=== PATIENT | male | born 1975 | race Caucasian/White ===

== ENCOUNTER 2017-11-30 13:54 | Inpatient (IN) | payer OTHER ==
[2017-11-30 14:16] VITALS: BMI 43.5
--- NOTE | 2017-11-30 16:35 | HP ---
"CIWA Score - CIWA Score Nausea/Vomitin-No Nausea/No Vomiting Muscle Tremors: 4-Moderate,w/Arms Extend Anxiety: 4-Mod. Anxious/Guarded Agitation: 4-Moderately Restless Paroxysmal Sweats: 3 (Facial moisture w/o beading) Orientation: 1-Uncertain about Date Tacttile Disturbances: 0-None Auditory Disturbances: 0-None Visual Disturbances: 0-None Headache: 0-None Present CIWA-Ar Total Score: 16 Admission ROS BHS - HPI Chief Complaint: Having withdrawal symptoms from alcohol. Allergies/Adverse Reactions: Allergies Allergy/AdvReac Type Severity Reaction Status Date / Time Fish Containing Products Allergy Severe Verified 11/30/17 17:42 No Known Drug Allergies Allergy Verified 11/30/17 17:47 History of Present Illness: I'm here for detox for my alcohol and cocaine use. Alcohol use since age 14. Cocaine use since age 19. Nicotine use since age 14. Denies hx blackouts. States hx seizure 20 years ago r/t intense crack use. Longest length of sobriety 7 years ended in 2016. Hx: DM, HTN, hypercholesterol, Asthma. Chronic leg and back pain. States on oxycodone but doesn't take unless has really bad pain. Patient informed that this facility does not prescribe opiates for pain management and states ibuprofen will be okay. State non-compliant w/ DM medications x 2 days. Current BG is 229. Will give Janumet and glipizide but hold insulin and evaluate need based on BGM during admission. Hx PPD (+). Patient brought in results of negative C-Xray from Jun, 2017. Search Terms: Thompson Palafox, 1975 Search Date: 11/30/2017 04:46:37 PM The Drug Utilization Report below displays all of the controlled substance prescriptions, if any, that your patient has filled in the last twelve months. The information displayed on this report is compiled from pharmacy submissions to the Department, and accurately reflects the information as submitted by the pharmacies. This report was requested by: Amy Crowley | Reference #: [id number] Patient Name: Thompson Palafox Date: 1975 Address: [address] [place] [address] Sex: Male Rx Written Rx Dispensed Drug Quantity Days Supply Prescriber Name 11/27/2017 11/29/2017 oxycodone-acetaminophen 10-325 mg tab 30 15 Bonte, Cornelius Cameron () 11/14/2017 11/15/2017 oxycodone-acetaminophen 10-325 mg tab 30 15 Ren, Peyton 11/01/2017 11/01/2017 oxycodone-acetaminophen 10-325 mg tab 30 15 Cornelius Troncoso () 10/16/2017 10/16/2017 oxycodone-acetaminophen 10-325 mg tab 30 15 Cornelius Troncoso () 09/17/2017 09/17/2017 oxycodone-acetaminophen 10-325 mg tab 30 15 Ren, Peyton 08/28/2017 08/28/2017 oxycodone-acetaminophen 10-325 mg tab 30 15 Ren, Peyton 08/06/2017 08/07/2017 oxycodone-acetaminophen 10-325 mg tab 30 15 Ren, Peyton 07/24/2017 07/24/2017 oxycodone-acetaminophen 10-325 mg tab 30 15 Cornelius Troncoso () 07/03/2017 07/03/2017 oxycodone-acetaminophen 10-325 mg tab 30 15 Cornelius Troncoso () Patient Name: Thompson Palafox Date: 1975 Address: [address] [place] [address] Sex: Male Rx Written Rx Dispensed Drug Quantity Days Supply Prescriber Name 06/13/2017 06/13/2017 oxycodone-acetaminophen 10-325 mg tab 21 7 Olga Dumont 05/28/2017 05/28/2017 oxycodone-acetaminophen 10-325 mg tab 21 7 Olga Dumont 05/14/2017 05/14/2017 oxycodone-acetaminophen 10-325 mg tab 21 7 Olga Dumont 04/16/2017 04/16/2017 oxycodone-acetaminophen 10-325 mg tab 21 7 Olga Dumont 03/30/2017 03/30/2017 acetaminophen-cod #3 tablet 30 15 Olga Dumont 02/07/2017 02/07/2017 oxycodone-acetaminophen 10-325 mg tab 60 30 Faraz Rose MD 01/03/2017 01/03/2017 oxycodone-acetaminophen 10-325 mg tab 60 30 Faraz Rose MD 12/06/2016 12/06/2016 oxycodone-acetaminophen 10-325 mg tab 60 30 Faraz Rose MD x Exam Limitations: No Limitations - Ebola screening Have you traveled outside of the country in the last 21 days: No Have you had contact with anyone from an Ebola affected area: No Have you been sick,other than usual withdrawal symptoms: No Do you have a fever: No - Review of Systems Constitutional: Chills, Diaphoresis, Changes in sleep (Difficulty staying asleep.) EENT: reports: Blurred Vision (Wears glasses), Dental Problems (Gingivitis. Chew and swallows ok.) Respiratory: reports: Cough (Cough x 1 day. No phlegm), SOB with Exertion, Other (States has sleep apnea but not using a CPAP machine.) Cardiac: reports: No Symptoms Reported GI: reports: No Symptoms Reported : reports: No Symptoms Reported Musculoskeletal: reports: Back Pain (Chronic current LBP x 10 years. Pain is a ' 9' and achy. Increases w/ walking. Decreases w/ rest.), Other (Pain in entire (L ) leg x 10 years. Pain '9' is achy. Worse w/ walking. Better w/ resting/sitting. ) Integumentary: reports: No Symptoms Reported Neuro: reports: Unsteady Gait (r/t pain in (L) leg) Endocrine: reports: No Symptoms Reported Hematology: reports: No Symptoms Reported Psychiatric: reports: Judgement Intact, Agitated, Anxious, Depressed (Denies thoughts of harming self or others), other (Knows month and year. unsure of date ) Other Systems: Reviewed and Negative Patient History - Patient Medical History Hx Anemia: No Hx Asthma: Yes (Moderate asthma. Occ flovent ) Hx Chronic Obstructive Pulmonary Disease (COPD): No Hx Cancer: No Hx Cardiac Disorders: No Hx Congestive Heart Failure: No Hx Hypertension: No Hx Hypercholesterolemia: Yes (On meds ) Hx Pacemaker: No HX Cerebrovascular Accident: No Hx Seizures: Yes (20 years ago) Hx Dementia: No Hx Diabetes: Yes (States only takes Janumet, ) Hx Gastrointestinal Disorders: No Hx Liver Disease: No Hx Genitourinary Disorders: No Hx Sexually Transmitted Disorders: No Hx Renal Disease (ESRD): No Hx Thyroid Disease: No Hx Human Immunodeficiency Virus (HIV): No (Negative - Last tested 2017) Hx Hepatitis C: No Hx Depression: Yes (Denies current thoughts of harming self) Hx Suicide Attempt: Yes (20 years ago) Hx Bipolar Disorder: Yes (bi-polar) Hx Schizophrenia: No - Patient Surgical History Past Surgical History: Yes Hx Orthopedic Surgery: Yes (ORIF 1985) Anesthesia Reaction: No - PPD History Previous Implant?: Yes Implanted On Prior R Admission?: No PPD to be Administered?: No - Smoking Cessation Smoking history: Current every day smoker Have you smoked in the past 12 months: Yes Aproximately how many cigarettes per day: 4 Hx Chewing Tobacco Use: No Initiated information on smoking cessation: Yes 'Breaking Loose' booklet given: 11/30/17 - Substance & Tx. History Hx Alcohol Use: Yes Hx Substance Use: Yes Substance Use Type: Alcohol, Cocaine Hx Substance Use Treatment: Yes (detox) - Substances Abused Alcohol Route: Oral Frequency: Daily Amount used: 2 pints vodka, 12- 24 oz beers Age of first use: 14 Date of Last Use: 11/30/17 (2 am) Cocaine Route: Smoking Frequency: Daily Amount used: 2 gm Age of first use: 19 Date of Last Use: 11/30/17 (2 am) Admission Physical Exam BHS - Vital Signs Vital Signs: Vital Signs - 24 hr 11/30/17 14:14 Temperature 97.0 F L Pulse Rate 81 Respiratory 20 Rate Blood Pressure 130/75 - Physical General Appearance: Yes: Mild Distress, Tremorous, Irritable, Sweating, Anxious HEENTM: Yes: EOMI, Hearing grossly Normal, Normal Voice, TASNEEM, Other (Enkarged tonsils w/o lesions or erythema. Stage 3.) Respiratory: Yes: No Respiratory Distress, Wheezing (Inspiratory and expiratory wheeze. No rales or rhonchi) Neck: Yes: No masses,lesions,Nodules, Supple Breast: Yes: Breast Exam Deferred Cardiology: Yes: Regular Rhythm, Regular Rate, S1, S2 Abdominal: Yes: Non Tender, Soft, Increased Bowel Sounds, Protuberent ( Increased abdomnial adiposity) Genitourinary: Yes: Within Normal Limits Back: Yes: Normal Inspection Musculoskeletal: Yes: full range of Motion Extremities: Yes: Normal Capillary Refill, Normal Range of Motion, Tremors (At rest and increases with arm extension), Other (Generalized LE adiposity. Increased darkened varicosities BLE. 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 No edema. 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 Diabetes mellitus complication status : with unspecified complications Qualified Code(s): E11.8 - Type 2 diabetes mellitus with unspecified complications (4) Hypertension Current Visit: Yes Status: Chronic Qualifiers: Hypertension type: essential hypertension Qualified Code(s): I10 - Essential (primary) hypertension (5) Arthralgia Current Visit: Yes Status: Chronic Qualifiers: Joint pain location: unspecified Qualified Code(s): M25.50 - Pain in unspecified joint (6) Morbid obesity Current Visit: Yes Status: Chronic (7) Varicose veins of both lower extremities Current Visit: Yes Status: Chronic Qualifiers: Varicose vein complication: asymptomatic Qualified Code(s): I83.93 - Asymptomatic varicose veins of bilateral lower extremities (8) Asthma Current Visit: Yes Status: Acute Qualifiers: Asthma severity: unspecified severity Asthma persistence: intermittent Asthma complication type: with acute exacerbation Qualified Code(s): J45.21 - Mild intermittent asthma with (acute) exacerbation Cleared for Admission BHS - Detox or Rehab [facility] Level of Care: Medically Managed Detox Regimen/Protocol: Librium [facility] Breath Alcohol Content Breath Alcohol Content: 0 Urine Drug Screen - Results Drug Screen Negative: No Urine Drug Screen Results: ANCA-Cocaine, BZO-Benzodiazepines"
[2017-11-30] MEDS ORDERED: chlordiazePOXIDE HCL 25 MG CAPSULE PO PRN (17:15)
[2017-11-30] MEDS ORDERED: MENTHOL/PHENOL 1 EACH UD MM PRN (17:15)
[2017-11-30] MEDS ORDERED: LOPERAMIDE HCL 2 MG CAPSULE PO PRN (17:15)
[2017-11-30] MEDS ORDERED: ACETAMINOPHEN 325 MG TABLET (FP) PO PRN (17:15)
[2017-11-30] MEDS ORDERED: MAGNESIUM HYDROX 2400MG/30ML ORAL SUSPENSION 30 ML CUP PO PRN (17:15)
[2017-11-30] MEDS ORDERED: MAGNESIUM CITRATE 300 ML BOTTLE PO PRN (17:15)
[2017-11-30] MEDS ORDERED: hydrOXYzine PAMOATE 50 MG CAPSULE (FP) PO PRN (17:15)
[2017-11-30] MEDS ORDERED: guaiFENesin/D-METHORPHAN HB 10 ML UNIT-DOSE CUPS PO PRN (17:15)
[2017-11-30] MEDS ORDERED: IBUPROFEN 400 MG TABLET (FP) PO PRN (17:15)
[2017-11-30] MEDS ORDERED: MAG HYDROX/AL HYDROX/SIMETH 30 ML UNIT-DOSE CUP PO PRN (17:15)
[2017-11-30] MEDS ORDERED: P-EPHED 60MG/TRIPROLIDI 2.5MG TABLET PO PRN (17:15)
[2017-11-30] MEDS ORDERED: ALBUTEROL SO4 0.083% IH SOL 2.5 MG/3 ML VIAL.NEB. NEB PRN (17:20)
[2017-11-30] MEDS ORDERED: ALBUTEROL SO4 0.083% IH SOL 2.5 MG/3 ML VIAL.NEB. NEB ONE (19:30)
[2017-11-30] MEDS ORDERED: chlordiazePOXIDE HCL 25 MG CAPSULE PO ONE (19:30)
[2017-11-30] MEDS: chlordiazePOXIDE HCL 25 MG CAPSULE PO SCH (22:41)
[2017-11-30] MEDS: THIAMINE HCL 100 MG TABLET (FP) PO SCH (22:41)
[2017-12-01 01:24] LABS: URINE APPEARANCE CLEAR; URINE BILIRUBIN NEGATIVE (<2.0 mg/dL); URINE COLOR YELLOW; URINE GLUCOSE (UA) 3+ (NEGATIVE); URINE KETONE TRACE (NEGATIVE); URINE LEUK ESTERASE NEGATIVE (NEGATIVE); URINE NITRITE NEGATIVE (NEGATIVE); URINE PROTEIN 1+ (NEGATIVE); URINE UROBILINOGEN NEGATIVE mg/dL (0.2-1.0)
[2017-12-01 01:33] LABS: EPI CELLS RARE /HPF (FEW); URINE HYALINE CAST 3 /lpf; URINE MUCUS MODERATE
[2017-12-01] MEDS: chlordiazePOXIDE HCL 25 MG CAPSULE PO SCH ×4 (06:12→22:58)
[2017-12-01] MEDS: metFORMIN HCL 500 MG TABLET (FP) PO SCH (07:22)
[2017-12-01] MEDS: sitaGLIPtin PHOSPHATE 50 MG TABLET PO SCH (07:23)
[2017-12-01] MEDS: glipiZIDE 10 MG TABLET (FP) PO SCH (07:24)
[2017-12-01] MEDS: PRENATAL VITAMINS W/ FOLIC ACID TABLET (FP) PO SCH (10:29)
[2017-12-01] MEDS: ASPIRIN 81 MG CHEWABLE TABLETS PO SCH (10:29)
[2017-12-01] MEDS: LISINOPRIL 5 MG TABLET (FP) PO SCH (10:29)
--- NOTE | 2017-12-01 10:34 | EKG ---
Test Reason : Blood Pressure : / mmHG Vent. Rate : 078 BPM Atrial Rate : 078 BPM P-R Int : 166 ms QRS Dur : 080 ms QT Int : 486 ms P-R-T Axes : 060 037 056 degrees QTc Int : 554 ms POOR DATA QUALITY, INTERPRETATION MAY BE ADVERSELY AFFECTED NORMAL SINUS RHYTHM PROLONGED QT ABNORMAL ECG NO PREVIOUS ECGS AVAILABLE Confirmed by TYLER MCCULLOUGH MD ([id number]) on 12/01/2017 10:34:13 AM Referred By: Confirmed By:TYLER MCCULLOUGH MD
--- NOTE | 2017-12-01 10:40 | CONSULT ---
[facility] Psychiatric Consult - Data Date of interview: 12/01/17 Admission source: [facility] Identifying data: First admission to [facility] for this 42 y/o male seeking detoxification treatment on for alcohol and cocaine dependence. Patient is single without dependents,homeless,unemployed and deprived of income. Substance Abuse History: Discussed with patient in this interview. Mr Palafox confirms the following data included in this segment of [facility] report : Smoking history: Current every day smoker. Have you smoked in the past 12 months: Yes. Aproximately how many cigarettes per day: 4. Hx Chewing Tobacco Use: No. Initiated information on smoking cessation: Yes. 'Breaking Loose' booklet given : 11/30/17. - Substance & Tx. History. Hx Alcohol Use: Yes. Hx Substance Use : Yes. Substance Use Type: Alcohol, Cocaine. Hx Substance Use Treatment: Yes ( detox). - Substances Abused. Alcohol. Route: Oral. Frequency: Daily. Amount used: 2 pints vodka, 12- 24 oz beers. Age of first use: 14. Date of Last Use: 11/30/17 (2 am). Cocaine. Route: Smoking. Frequency: Daily. Amount used: 2 gm. Age of first use: 19. Date of Last Use: 11/30/17 (2 am) Medical History: Diabetes mellitus,dyslipidemia,obesity,bronchial asthma, hypertension,history of positive PPD and chronic lumbar pain. Psychiatric History: Patient endorses a history of five psychiatric hospitalizations ([facility]). Diagnosed with MDD and Bipolar Disorder (self-report).Mr Palafox states that he used to be prescribed celexa,haldol,trazodone (doses and date of last intake : not recalled ).No contact with psychiatric OPD care providers. " I last took those medications when I was at [employer]. " More than six months ago. Patient admits to a remote history of a suicide attempt via overdose with medications ( years ago). Physical/Sexual Abuse/Trauma History: Patient denies. Additional Comment: Urine Drug Screen Results: ANCA-Cocaine, BZO- Benzodiazepines.Noted. Mental Status Exam - Mental Status Exam Alert and Oriented to: Time, Place, Person Cognitive Function: Grossly Intact Patient Appearance: Unkempt, Disheveled Mood: Nervous, Withdrawn Affect: Mood Congruent Patient Behavior: Fatigued, Cooperative Speech Pattern: Clear Voice Loudness: Normal Thought Process: Goal Oriented Thought Disorder: Not Present Hallucinations: Denies Suicidal Ideation: Denies Homicidal Ideation: Denies Insight/Judgement: Poor Sleep: Poorly, Difficulty falling asleep Appetite: Good Muscle strength/Tone: Normal Gait/Station: Normal Psychiatric Findings - Problem List ([place] 1, 2,3) (1) Alcohol dependence with uncomplicated withdrawal Current Visit: Yes Status: Acute (2) Cocaine dependence Current Visit: Yes Status: Acute (3) Nicotine dependence Current Visit: Yes Status: Acute (4) Substance induced mood disorder Current Visit: Yes Status: Acute (5) Insomnia Current Visit: Yes Status: Acute (6) Non-compliant patient Current Visit: Yes Status: Chronic - Initial Treatment Plan Initial Treatment Plan: Psychoeducation.Sleep hygiene.Detoxification in progress. No indication, at this time, for the re-introduction of psychotropic drugs other than medications needed for detoxification purposes.Insomnia is addressed with melatonin at bedside.Medication reconciliation : no psychotropics found ; only medical formulations. Observation.
[2017-12-01 11:23] LABS: ALBUMIN 3.2 g/dl (3.4-5.0); ALK PHOS 78 U/L (45-117); ANION GAP 8 MMOL/L (8-16); BILIRUBIN,TOTAL 0.6 mg/dL (0.2-1); BLOOD UREA NITROGEN 15 mg/dL (7-18); CALCIUM 8.9 mg/dL (8.5-10.1); CHLORIDE 100 mmol/L (98-107); CO2 30 mmol/L (21-32); CREATININE 0.6 mg/dL (0.55-1.3); GLUCOSE,RANDOM 157 mg/dL (74-106); SGOT/AST 13 U/L (15-37); SGPT/ALT 13 U/L (13-61); SODIUM 138 mmol/L (136-145); TOT PROT 6.9 g/dl (6.4-8.2)
[2017-12-01 11:25] LABS: HEMATOCRIT 41.8 % (35.4-49); HEMOGLOBIN 13.8 GM/dL (11.7-16.9); MCH 29.5 pg (25.7-33.7); MCHC 33.1 g/dl (32.0-35.9); MEAN CELL VOLUME 89.2 fl (80-96); MEAN PLT VOLUME 8.6 fl (7.5-11.1); PLATELET COUNT 190 K/MM3 (134-434); RBC 4.68 M/mm3 (4.00-5.60); RDW 14.6 % (11.9-15.9); WHITE BLOOD COUNT 7.3 K/mm3 (4.0-10.0)
--- NOTE | 2017-12-01 16:16 | PN ---
S CIWA - CIWA Score Nausea/Vomitin Muscle Tremors: 2 Anxiety: 2 Agitation: 2 Paroxysmal Sweats: 1-Minimal Palms Moist Orientation: 0-Oriented Tacttile Disturbances: 1-Very Mild Itch/Numbness Auditory Disturbances: 1-Very Mild Visual Disturbances: 1-Very Mild Sensitivity Headache: 2-Mild CIWA-Ar Total Score: 14 S Progress Note (SOAP) Subjective: alert,irritable,anxious,interrupted sleep,tremor Objective: 12/01/17 16:13 Vital Signs Temperature 97.0 F L 12/01/17 15:23 Pulse Rate 74 12/01/17 15:23 Respiratory Rate 18 12/01/17 15:23 Blood Pressure 128/87 12/01/17 15:23 O2 Sat by Pulse Oximetry (%) ekg poor quality nsr qt/qtc 486/554 no chest pain,no sob,no dizziness Laboratory Last Values WBC 7.3 K/mm3 (4.0-10.0) 12/01/17 08:00 RBC 4.68 M/mm3 (4.00-5.60) 12/01/17 08:00 Hgb 13.8 GM/dL (11.7-16.9) 12/01/17 08:00 Hct 41.8 % (35.4-49) 12/01/17 08:00 MCV 89.2 fl (80-96) 12/01/17 08:00 MCH 29.5 pg (25.7-33.7) 12/01/17 08:00 MCHC 33.1 g/dl (32.0-35.9) 12/01/17 08:00 RDW 14.6 % (11.9-15.9) 12/01/17 08:00 Plt Count 190 K/MM3 (134-434) 12/01/17 08:00 MPV 8.6 fl (7.5-11.1) 12/01/17 08:00 Sodium 138 mmol/L (136-145) 12/01/17 08:00 Potassium 4.0 mmol/L (3.5-5.1) 12/01/17 08:00 Chloride 100 mmol/L (98-107) 12/01/17 08:00 Carbon Dioxide 30 mmol/L (21-32) 12/01/17 08:00 Anion Gap 8 MMOL/L (8-16) 12/01/17 08:00 BUN 15 mg/dL (7-18) 12/01/17 08:00 Creatinine 0.6 mg/dL (0.55-1.3) 12/01/17 08:00 Creat Clearance w eGFR > 60 (>60) 12/01/17 08:00 POC Glucometer 169 UNITS (80-120) 12/01/17 07:14 Random Glucose 157 mg/dL (74-106) H 12/01/17 08:00 Calcium 8.9 mg/dL (8.5-10.1) 12/01/17 08:00 Total Bilirubin 0.6 mg/dL (0.2-1) 12/01/17 08:00 AST 13 U/L (15-37) L 12/01/17 08:00 ALT 13 U/L (13-61) 12/01/17 08:00 Alkaline Phosphatase 78 U/L (45-117) 12/01/17 08:00 Total Protein 6.9 g/dl (6.4-8.2) 12/01/17 08:00 Albumin 3.2 g/dl (3.4-5.0) L 12/01/17 08:00 Urine Color Yellow 11/30/17 23:59 Urine Appearance Clear 11/30/17 23:59 Urine pH 5.0 (5.0-8.0) 11/30/17 23:59 Ur Specific [place] 1.026 (1.010-1.035) 11/30/17 23:59 Urine Protein 1+ (NEGATIVE) H 11/30/17 23:59 Urine Glucose (UA) 3+ (NEGATIVE) H 11/30/17 23:59 Urine Ketones Trace (NEGATIVE) H 11/30/17 23:59 Urine Blood Negative (NEGATIVE) 11/30/17 23:59 Urine Nitrite Negative (NEGATIVE) 11/30/17 23:59 Urine Bilirubin Negative (<2.0 mg/dL) 11/30/17 23:59 Urine Urobilinogen Negative mg/dL (0.2-1.0) 11/30/17 23:59 Ur Leukocyte Esterase Negative (NEGATIVE) 11/30/17 23:59 Urine WBC (Auto) <1 /hpf (3-5) 11/30/17 23:59 Urine RBC (Auto) <1 /hpf (0-3) 11/30/17 23:59 Ur Epithelial Cells Rare /HPF (FEW) 11/30/17 23:59 Hyaline Casts 3 /lpf 11/30/17 23:59 Urine Mucus Moderate 11/30/17 23:59 RPR Titer Nonreactive (NONREACTIVE) 12/01/17 08:00 Assessment: 12/01/17 16:15 withdrawal symptom Plan: continue detox,bgm monitoring
[2017-12-01] MEDS: MELATONIN 5 MG TABLETS PO PRN (22:57)
[2017-12-01] MEDS: THIAMINE HCL 100 MG TABLET (FP) PO SCH (22:57)
[2017-12-02] MEDS: chlordiazePOXIDE HCL 25 MG CAPSULE PO SCH ×3 (06:26→18:10)
[2017-12-02] MEDS: glipiZIDE 10 MG TABLET (FP) PO SCH (06:31)
[2017-12-02] MEDS: metFORMIN HCL 500 MG TABLET (FP) PO SCH (06:31)
[2017-12-02] MEDS: sitaGLIPtin PHOSPHATE 50 MG TABLET PO SCH (06:31)
[2017-12-02] MEDS: LISINOPRIL 5 MG TABLET (FP) PO SCH (10:44)
[2017-12-02] MEDS: ASPIRIN 81 MG CHEWABLE TABLETS PO SCH (10:44)
[2017-12-02] MEDS: PRENATAL VITAMINS W/ FOLIC ACID TABLET (FP) PO SCH (10:44)
--- NOTE | 2017-12-02 16:33 | PN ---
[facility] CIWA - CIWA Score Nausea/Vomitin Muscle Tremors: 4-Moderate,w/Arms Extend Anxiety: 4-Mod. Anxious/Guarded Agitation: 4-Moderately Restless Paroxysmal Sweats: 3 Orientation: 0-Oriented Tacttile Disturbances: 0-None Auditory Disturbances: 0-None Visual Disturbances: 0-None Headache: 0-None Present CIWA-Ar Total Score: 17 BHS Progress Note (SOAP) Subjective: Tremor, chills, sweating, interrupted sleep Objective: 12/02/17 16:29 Last Vital Signs Temp Pulse Resp BP Pulse Ox 98.0 F 75 20 131/84 12/02/17 14:14 12/02/17 14:14 12/02/17 14:14 12/02/17 14:14 Laboratory Tests 11/30/17 11/30/17 12/01/17 17:53 23:59 07:14 WBC RBC Hgb Hct MCV MCH MCHC RDW Plt Count MPV Sodium Potassium Chloride Carbon Dioxide Anion Gap BUN Creatinine Creat Clearance w eGFR POC Glucometer 229 169 Random Glucose Calcium Total Bilirubin AST ALT Alkaline Phosphatase Total Protein Albumin Urine Color Yellow Urine Appearance Clear Urine pH 5.0 Ur Specific [place] 1.026 Urine Protein 1+ H Urine Glucose (UA) 3+ H Urine Ketones Trace H Urine Blood Negative Urine Nitrite Negative Urine Bilirubin Negative Urine Urobilinogen Negative Ur Leukocyte Esterase Negative Urine WBC (Auto) <1 Urine RBC (Auto) <1 Ur Epithelial Cells Rare Hyaline Casts 3 Urine Mucus Moderate RPR Titer 12/01/17 12/01/17 12/01/17 08:00 08:00 08:00 WBC 7.3 RBC 4.68 Hgb 13.8 Hct 41.8 MCV 89.2 MCH 29.5 MCHC 33.1 RDW 14.6 Plt Count 190 MPV 8.6 Sodium 138 Potassium 4.0 Chloride 100 Carbon Dioxide 30 Anion Gap 8 BUN 15 Creatinine 0.6 Creat Clearance w eGFR > 60 POC Glucometer Random Glucose 157 H Calcium 8.9 Total Bilirubin 0.6 AST 13 L ALT 13 Alkaline Phosphatase 78 Total Protein 6.9 Albumin 3.2 L Urine Color Urine Appearance Urine pH Ur Specific [place] Urine Protein Urine Glucose (UA) Urine Ketones Urine Blood Urine Nitrite Urine Bilirubin Urine Urobilinogen Ur Leukocyte Esterase Urine WBC (Auto) Urine RBC (Auto) Ur Epithelial Cells Hyaline Casts Urine Mucus RPR Titer Nonreactive 12/01/17 12/01/17 12/02/17 16:51 20:24 06:30 WBC RBC Hgb Hct MCV MCH MCHC RDW Plt Count MPV Sodium Potassium Chloride Carbon Dioxide Anion Gap BUN Creatinine Creat Clearance w eGFR POC Glucometer 198 186 160 Random Glucose Calcium Total Bilirubin AST ALT Alkaline Phosphatase Total Protein Albumin Urine Color Urine Appearance Urine pH Ur Specific [place] Urine Protein Urine Glucose (UA) Urine Ketones Urine Blood Urine Nitrite Urine Bilirubin Urine Urobilinogen Ur Leukocyte Esterase Urine WBC (Auto) Urine RBC (Auto) Ur Epithelial Cells Hyaline Casts Urine Mucus RPR Titer Labs reviewed: increased glucose, abnormal UA Assessment: 12/02/17 16:30 Withdrawal sxs Noted with hyperglycemia and abnormal UA Plan: Continue detox Hyperglycemia: secondary to DMT2, continue present regimen Abnormal UA: encouraged PO water intake, repeat UA
[2017-12-02] MEDS: THIAMINE HCL 100 MG TABLET (FP) PO SCH (22:55)
[2017-12-02] MEDS: MELATONIN 5 MG TABLETS PO PRN (22:55)
[2017-12-02] MEDS: chlordiazePOXIDE 5 MG CAPSULE PO SCH (22:56)
[2017-12-03] MEDS: chlordiazePOXIDE 5 MG CAPSULE PO SCH ×4 (05:47→18:17)
[2017-12-03] MEDS: sitaGLIPtin PHOSPHATE 50 MG TABLET PO SCH (07:21)
[2017-12-03] MEDS: glipiZIDE 10 MG TABLET (FP) PO SCH (07:21)
[2017-12-03] MEDS: metFORMIN HCL 500 MG TABLET (FP) PO SCH (07:21)
[2017-12-03] MEDS: LISINOPRIL 5 MG TABLET (FP) PO SCH (10:43)
[2017-12-03] MEDS: ASPIRIN 81 MG CHEWABLE TABLETS PO SCH (10:43)
[2017-12-03] MEDS: PRENATAL VITAMINS W/ FOLIC ACID TABLET (FP) PO SCH (10:46)
--- NOTE | 2017-12-03 12:39 | PN ---
BHS Progress Note (SOAP) Subjective: Sweating, interrupted sleep Objective: 12/03/17 12:38 Last Vital Signs Temp Pulse Resp BP Pulse Ox 96.7 F L 57 L 18 120/77 12/03/17 09:25 12/03/17 09:25 12/03/17 09:25 12/03/17 09:25 Laboratory Tests 11/30/17 11/30/17 12/01/17 17:53 23:59 07:14 WBC RBC Hgb Hct MCV MCH MCHC RDW Plt Count MPV Sodium Potassium Chloride Carbon Dioxide Anion Gap BUN Creatinine Creat Clearance w eGFR POC Glucometer 229 169 Random Glucose Calcium Total Bilirubin AST ALT Alkaline Phosphatase Total Protein Albumin Urine Color Yellow Urine Appearance Clear Urine pH 5.0 Ur Specific [place] 1.026 Urine Protein 1+ H Urine Glucose (UA) 3+ H Urine Ketones Trace H Urine Blood Negative Urine Nitrite Negative Urine Bilirubin Negative Urine Urobilinogen Negative Ur Leukocyte Esterase Negative Urine WBC (Auto) <1 Urine RBC (Auto) <1 Ur Epithelial Cells Rare Hyaline Casts 3 Urine Mucus Moderate RPR Titer 12/01/17 12/01/17 12/01/17 08:00 08:00 08:00 WBC 7.3 RBC 4.68 Hgb 13.8 Hct 41.8 MCV 89.2 MCH 29.5 MCHC 33.1 RDW 14.6 Plt Count 190 MPV 8.6 Sodium 138 Potassium 4.0 Chloride 100 Carbon Dioxide 30 Anion Gap 8 BUN 15 Creatinine 0.6 Creat Clearance w eGFR > 60 POC Glucometer Random Glucose 157 H Calcium 8.9 Total Bilirubin 0.6 AST 13 L ALT 13 Alkaline Phosphatase 78 Total Protein 6.9 Albumin 3.2 L Urine Color Urine Appearance Urine pH Ur Specific [place] Urine Protein Urine Glucose (UA) Urine Ketones Urine Blood Urine Nitrite Urine Bilirubin Urine Urobilinogen Ur Leukocyte Esterase Urine WBC (Auto) Urine RBC (Auto) Ur Epithelial Cells Hyaline Casts Urine Mucus RPR Titer Nonreactive 12/01/17 12/01/17 12/02/17 16:51 20:24 06:30 WBC RBC Hgb Hct MCV MCH MCHC RDW Plt Count MPV Sodium Potassium Chloride Carbon Dioxide Anion Gap BUN Creatinine Creat Clearance w eGFR POC Glucometer 198 186 160 Random Glucose Calcium Total Bilirubin AST ALT Alkaline Phosphatase Total Protein Albumin Urine Color Urine Appearance Urine pH Ur Specific [place] Urine Protein Urine Glucose (UA) Urine Ketones Urine Blood Urine Nitrite Urine Bilirubin Urine Urobilinogen Ur Leukocyte Esterase Urine WBC (Auto) Urine RBC (Auto) Ur Epithelial Cells Hyaline Casts Urine Mucus RPR Titer 12/02/17 12/03/17 16:17 05:45 WBC RBC Hgb Hct MCV MCH MCHC RDW Plt Count MPV Sodium Potassium Chloride Carbon Dioxide Anion Gap BUN Creatinine Creat Clearance w eGFR POC Glucometer 168 162 Random Glucose Calcium Total Bilirubin AST ALT Alkaline Phosphatase Total Protein Albumin Urine Color Urine Appearance Urine pH Ur Specific [place] Urine Protein Urine Glucose (UA) Urine Ketones Urine Blood Urine Nitrite Urine Bilirubin Urine Urobilinogen Ur Leukocyte Esterase Urine WBC (Auto) Urine RBC (Auto) Ur Epithelial Cells Hyaline Casts Urine Mucus RPR Titer Labs reviewed Assessment: 12/03/17 12:39 Withdrawal sxs Noted with abnormal UA Plan: Continue detox Abnormal UA: encouraged PO water intake, follow up on repeated UA result
[2017-12-03 16:51] LABS: URINE APPEARANCE CLEAR; URINE BILIRUBIN NEGATIVE (<2.0 mg/dL); URINE COLOR LTYELLOW; URINE GLUCOSE (UA) 3+ (NEGATIVE); URINE KETONE NEGATIVE (NEGATIVE); URINE LEUK ESTERASE NEGATIVE (NEGATIVE); URINE NITRITE NEGATIVE (NEGATIVE); URINE PROTEIN NEGATIVE (NEGATIVE); URINE UROBILINOGEN NEGATIVE mg/dL (0.2-1.0)
[2017-12-03] MEDS: THIAMINE HCL 100 MG TABLET (FP) PO SCH (23:56)
[2017-12-03] MEDS: chlordiazePOXIDE HCL 10 MG CAPSULE PO SCH (23:57)
[2017-12-04] MEDS: chlordiazePOXIDE HCL 10 MG CAPSULE PO SCH (05:30)
[2017-12-04] MEDS: glipiZIDE 10 MG TABLET (FP) PO SCH (06:21)
[2017-12-04] MEDS: metFORMIN HCL 500 MG TABLET (FP) PO SCH (06:21)
[2017-12-04] MEDS: sitaGLIPtin PHOSPHATE 50 MG TABLET PO SCH (06:21)
[2017-12-04 06:34] VITALS: BP 121/75; PULSE 68; TEMP 98.6
--- NOTE | 2017-12-04 10:44 | DS ---
[facility] Detox Discharge Summary Admission Date: 11/30/17 Discharge Date: 12/04/17 - History Present History: Alcohol Dependence Pertinent Past History: Asthma DMT2 with hyperglycemia HTN Morbid obesity Varicose veins B/L LE - Physical Exam Results Vital Signs: Vital Signs Temperature 98.6 F 12/04/17 06:33 Pulse Rate 68 12/04/17 06:33 Respiratory Rate 18 12/04/17 06:33 Blood Pressure 121/75 12/04/17 06:33 O2 Sat by Pulse Oximetry (%) Pertinent Admission Physical Exam Findings: Withdrawal symptoms Laboratory Tests 11/30/17 11/30/17 12/01/17 17:53 23:59 07:14 WBC RBC Hgb Hct MCV MCH MCHC RDW Plt Count MPV Sodium Potassium Chloride Carbon Dioxide Anion Gap BUN Creatinine Creat Clearance w eGFR POC Glucometer 229 169 Random Glucose Calcium Total Bilirubin AST ALT Alkaline Phosphatase Total Protein Albumin Urine Color Yellow Urine Appearance Clear Urine pH 5.0 Ur Specific [place] 1.026 Urine Protein 1+ H Urine Glucose (UA) 3+ H Urine Ketones Trace H Urine Blood Negative Urine Nitrite Negative Urine Bilirubin Negative Urine Urobilinogen Negative Ur Leukocyte Esterase Negative Urine WBC (Auto) <1 Urine RBC (Auto) <1 Ur Epithelial Cells Rare Hyaline Casts 3 Urine Mucus Moderate RPR Titer 12/01/17 12/01/17 12/01/17 08:00 08:00 08:00 WBC 7.3 RBC 4.68 Hgb 13.8 Hct 41.8 MCV 89.2 MCH 29.5 MCHC 33.1 RDW 14.6 Plt Count 190 MPV 8.6 Sodium 138 Potassium 4.0 Chloride 100 Carbon Dioxide 30 Anion Gap 8 BUN 15 Creatinine 0.6 Creat Clearance w eGFR > 60 POC Glucometer Random Glucose 157 H Calcium 8.9 Total Bilirubin 0.6 AST 13 L ALT 13 Alkaline Phosphatase 78 Total Protein 6.9 Albumin 3.2 L Urine Color Urine Appearance Urine pH Ur Specific [place] Urine Protein Urine Glucose (UA) Urine Ketones Urine Blood Urine Nitrite Urine Bilirubin Urine Urobilinogen Ur Leukocyte Esterase Urine WBC (Auto) Urine RBC (Auto) Ur Epithelial Cells Hyaline Casts Urine Mucus RPR Titer Nonreactive 12/01/17 12/01/17 12/02/17 16:51 20:24 06:30 WBC RBC Hgb Hct MCV MCH MCHC RDW Plt Count MPV Sodium Potassium Chloride Carbon Dioxide Anion Gap BUN Creatinine Creat Clearance w eGFR POC Glucometer 198 186 160 Random Glucose Calcium Total Bilirubin AST ALT Alkaline Phosphatase Total Protein Albumin Urine Color Urine Appearance Urine pH Ur Specific [place] Urine Protein Urine Glucose (UA) Urine Ketones Urine Blood Urine Nitrite Urine Bilirubin Urine Urobilinogen Ur Leukocyte Esterase Urine WBC (Auto) Urine RBC (Auto) Ur Epithelial Cells Hyaline Casts Urine Mucus RPR Titer 12/02/17 12/03/17 12/03/17 16:17 05:45 06:17 WBC RBC Hgb Hct MCV MCH MCHC RDW Plt Count MPV Sodium Potassium Chloride Carbon Dioxide Anion Gap BUN Creatinine Creat Clearance w eGFR POC Glucometer 168 162 Random Glucose Calcium Total Bilirubin AST ALT Alkaline Phosphatase Total Protein Albumin Urine Color Ltyellow Urine Appearance Clear Urine pH 6.0 Ur Specific [place] 1.021 Urine Protein Negative Urine Glucose (UA) 3+ H Urine Ketones Negative Urine Blood Negative Urine Nitrite Negative Urine Bilirubin Negative Urine Urobilinogen Negative Ur Leukocyte Esterase Negative Urine WBC (Auto) Urine RBC (Auto) Ur Epithelial Cells Hyaline Casts Urine Mucus RPR Titer 12/03/17 12/04/17 16:15 05:29 WBC RBC Hgb Hct MCV MCH MCHC RDW Plt Count MPV Sodium Potassium Chloride Carbon Dioxide Anion Gap BUN Creatinine Creat Clearance w eGFR POC Glucometer 164 127 Random Glucose Calcium Total Bilirubin AST ALT Alkaline Phosphatase Total Protein Albumin Urine Color Urine Appearance Urine pH Ur Specific [place] Urine Protein Urine Glucose (UA) Urine Ketones Urine Blood Urine Nitrite Urine Bilirubin Urine Urobilinogen Ur Leukocyte Esterase Urine WBC (Auto) Urine RBC (Auto) Ur Epithelial Cells Hyaline Casts Urine Mucus RPR Titer Labs reviewed - Treatment Hospital Course: Detox Protocol Followed, Detoxed Safely, Responded well, Discharged Condition Good - Medication Discharge Medications: Ambulatory Orders Albuterol Sulfate Inhaler - [Ventolin Hfa Inhaler -] 2 inh PO Q4H PRN 11/30/17 Aspirin [ASA -] 81 mg PO DAILY 11/30/17 Glipizide [Glucotrol -] 10 mg PO DAILY 11/30/17 Insulin Glargine,Hum.rec.anlog [Basaglar Kwikpen U-100] 30 unit SQ BID 11/30/17 Lisinopril 5 mg PO DAILY 11/30/17 Sitagliptin Phos/Metformin HCl [Janumet 50-1,000 mg Tablet] 1 tab PO DAILY 11/30 - Diagnosis (1) Abnormal finding on urinalysis Status: Acute (2) Type 2 diabetes mellitus with hyperglycemia Status: Chronic (3) Alcohol dependence with uncomplicated withdrawal Status: Acute (4) Asthma Status: Chronic Qualifiers: Asthma severity: unspecified severity Asthma persistence: intermittent Asthma complication type: with acute exacerbation Qualified Code(s): J45.21 - Mild intermittent asthma with (acute) exacerbation (5) Hypertension Status: Chronic Qualifiers: Hypertension type: essential hypertension Qualified Code(s): I10 - Essential (primary) hypertension (6) Morbid obesity Status: Chronic (7) Varicose veins of both lower extremities Status: Chronic Qualifiers: Varicose vein complication: asymptomatic Qualified Code(s): I83.93 - Asymptomatic varicose veins of bilateral lower extremities - AMA Did Patient Leave Against Medical Advice: No (F/U with your PCP within 1-2 weeks )
== END 2017-12-04 10:08 | disposition home or self-care (01) | DRG 773 ==
LOC: YASAS 13:54 → Y3N 19:06
PROC: HZ2ZZZZ Detoxification Services for Substance Abuse Treatment (ICD-10-PCS; principal; 2017-11-30)
DX: F11.23 Opioid dependence with withdrawal (principal); F14.90 Cocaine use, unspecified, uncomplicated; F17.210 Nicotine dependence, cigarettes, uncomplicated; F19.24 Other psychoactive substance dependence with psychoactive substance-induced mood disorder; I10 Essential (primary) hypertension; G47.00 Insomnia, unspecified; E11.65 Type 2 diabetes mellitus with hyperglycemia; E78.5 Hyperlipidemia, unspecified; R82.90 Unspecified abnormal findings in urine; J45.21 Mild intermittent asthma with (acute) exacerbation; M25.50 Pain in unspecified joint; I83.93 Asymptomatic varicose veins of bilateral lower extremities; E66.01 Morbid (severe) obesity due to excess calories; Z68.41 Body mass index [BMI] 40.0-44.9, adult; Z91.14 Patient's other noncompliance with medication regimen; Z91.013 Allergy to seafood; Z86.69 Personal history of other diseases of the nervous system and sense organs; Z79.84 Long term (current) use of oral hypoglycemic drugs; Z91.5 Personal history of self-harm; Z59.0 Homelessness
CPT/HCPCS: 36415; 80053; 81003; 81015; 82962; 85027; 86593; 93005; 93010

== ENCOUNTER 2020-04-01 12:25 | Inpatient (IN) | payer OTHER ==
[2020-04-01 13:06] VITALS: BMI 44.1
[2020-04-01] MEDS ORDERED: MAGNESIUM HYDROX 2400MG/30ML ORAL SUSPENSION 30 ML CUP PO PRN (17:34)
[2020-04-01] MEDS ORDERED: guaiFENesin 200 MG/10 ML 10 ML UNIT-DOSE CUPS PO PRN (17:34)
[2020-04-01] MEDS ORDERED: NICOTINE POLACRILEX 2 MG GUM BC PRN (17:34)
[2020-04-01] MEDS ORDERED: MAG HYDROX/AL HYDROX/SIMETH 30 ML UNIT-DOSE CUP PO PRN (17:34)
[2020-04-01] MEDS ORDERED: LOPERAMIDE HCL 2 MG CAPSULE PO PRN (17:34)
[2020-04-01] MEDS ORDERED: MAGNESIUM CITRATE 300 ML BOTTLE PO PRN (17:34)
[2020-04-01] MEDS ORDERED: P-EPHED 60MG/TRIPROLIDI 2.5MG TABLET PO PRN (17:34)
[2020-04-01] MEDS ORDERED: ALBUTEROL SO4 HFA INHALER IH PRN (17:37)
[2020-04-01] MEDS: NICOTINE 7 MG/24 HOURS TOPICAL PATCH TD SCH (18:37)
[2020-04-01] MEDS: PRENATAL VITAMINS W/ FOLIC ACID TABLET (FP) PO SCH (18:37)
[2020-04-01] MEDS: MELATONIN 5 MG TABLETS PO SCH (21:07)
[2020-04-01] MEDS: THIAMINE HCL 100 MG TABLET (FP) PO SCH (21:08)
[2020-04-02] MEDS ORDERED: glipiZIDE 5 MG TABLET (FP) ONE (05:53)
[2020-04-02] MEDS: glipiZIDE 10 MG TABLET (FP) PO SCH (06:46)
[2020-04-02] MEDS: metFORMIN HCL 500 MG TABLET (FP) PO SCH (06:46)
[2020-04-02] MEDS: INSULIN (LEVEMIR) 100 UNITS/ML UNITS SQ SCH (06:49)
[2020-04-02] MEDS ORDERED: PATIENT'S OWN MEDICATION (NON-FORMULARY) (Sitagliptin Phos/Metformin Hcl [Janumet 50-1,000 PO SCH (07:00)
[2020-04-02] MEDS ORDERED: PATIENT'S OWN MEDICATION (NON-FORMULARY) (Insulin Glargine,Hum.Rec.Anlog [Basaglar Kwikpen SQ SCH (07:00)
[2020-04-02] MEDS: NICOTINE 7 MG/24 HOURS TOPICAL PATCH TD SCH (10:37)
[2020-04-02] MEDS: LISINOPRIL 5 MG TABLET PO SCH (10:37)
[2020-04-02] MEDS: ASPIRIN 81 MG CHEWABLE TABLETS PO SCH (10:37)
[2020-04-02] MEDS: PRENATAL VITAMINS W/ FOLIC ACID TABLET (FP) PO SCH (10:37)
[2020-04-02 11:14] LABS: URINE APPEARANCE CLEAR; URINE BILIRUBIN NEGATIVE (NEGATIVE); URINE COLOR YELLOW; URINE GLUCOSE (UA) 2+ (NEGATIVE); URINE KETONE NEGATIVE (NEGATIVE); URINE LEUK ESTERASE NEGATIVE (NEGATIVE); URINE NITRITE NEGATIVE (NEGATIVE); URINE PROTEIN NEGATIVE (NEGATIVE); URINE UROBILINOGEN 0.2 mg/dL (0.2-1.0)
[2020-04-02 11:30] LABS: EPI CELLS 3 /uL (0-25.1); HYALINE CASTS 0 /uL (0-3.1); URINE BACTERIA 256 /uL (0-1359); URINE RBC 2 /uL (0-23.9); URINE WBC 1 /uL (0-25.8)
[2020-04-02] MEDS: sitaGLIPtin PHOSPHATE 50 MG TABLET PO SCH (11:44)
[2020-04-02] MEDS: MELATONIN 5 MG TABLETS PO SCH (22:02)
[2020-04-02] MEDS: THIAMINE HCL 100 MG TABLET (FP) PO SCH (22:02)
[2020-04-03] MEDS ORDERED: glipiZIDE 5 MG TABLET (FP) ONE (04:54)
[2020-04-03] MEDS: INSULIN (LEVEMIR) 100 UNITS/ML UNITS SQ SCH (06:39)
[2020-04-03] MEDS: glipiZIDE 10 MG TABLET (FP) PO SCH (06:40)
[2020-04-03] MEDS: sitaGLIPtin PHOSPHATE 50 MG TABLET PO SCH (06:40)
[2020-04-03] MEDS: metFORMIN HCL 500 MG TABLET (FP) PO SCH (06:40)
[2020-04-03] MEDS: ASPIRIN 81 MG CHEWABLE TABLETS PO SCH (10:10)
[2020-04-03] MEDS: PRENATAL VITAMINS W/ FOLIC ACID TABLET (FP) PO SCH (10:10)
[2020-04-03] MEDS: NICOTINE 7 MG/24 HOURS TOPICAL PATCH TD SCH (10:10)
[2020-04-03] MEDS: LISINOPRIL 5 MG TABLET PO SCH (10:10)
[2020-04-03 12:04] LABS: HEMATOCRIT 42.3 % (35.4-49); HEMOGLOBIN 14.2 GM/dL (11.7-16.9); MCH 30.8 pg (25.7-33.7); MCHC 33.6 g/dl (32.0-35.9); MEAN CELL VOLUME 91.9 fl (80-96); MEAN PLT VOLUME 8.4 fl (7.5-11.1); PLATELET COUNT 199 K/MM3 (134-434); RBC 4.61 M/mm3 (4.00-5.60); RDW 13.6 % (11.9-15.9); WHITE BLOOD COUNT 6.9 K/mm3 (4.0-10.0)
[2020-04-03 12:08] LABS: POTASSIUM 4.3 mmol/L (3.5-5.1)
[2020-04-03 12:10] LABS: ALBUMIN 3.6 g/dl (3.4-5.0); BLOOD UREA NITROGEN 19.9 mg/dL (7-18); CALCIUM 9.1 mg/dL (8.5-10.1)
[2020-04-03 12:14] LABS: CREATININE 0.8 mg/dL (0.55-1.3)
[2020-04-03 12:15] LABS: BILIRUBIN,TOTAL 0.6 mg/dL (0.2-1); TOT PROT 7.8 g/dl (6.4-8.2)
[2020-04-03] MEDS ORDERED: PT OWN MED DRAWER 7, Y5N ONE (14:01)
[2020-04-03] MEDS: THIAMINE HCL 100 MG TABLET (FP) PO SCH (21:09)
[2020-04-03] MEDS: MELATONIN 5 MG TABLETS PO SCH (21:09)
[2020-04-04] MEDS ORDERED: glipiZIDE 5 MG TABLET (FP) ONE (03:16)
[2020-04-04] MEDS: sitaGLIPtin PHOSPHATE 50 MG TABLET PO SCH (06:11)
[2020-04-04] MEDS: glipiZIDE 10 MG TABLET (FP) PO SCH (06:11)
[2020-04-04] MEDS: metFORMIN HCL 500 MG TABLET (FP) PO SCH (06:11)
[2020-04-04] MEDS: INSULIN (LEVEMIR) 100 UNITS/ML UNITS SQ SCH (07:41)
[2020-04-04] MEDS: PRENATAL VITAMINS W/ FOLIC ACID TABLET (FP) PO SCH (09:55)
[2020-04-04] MEDS: ASPIRIN 81 MG CHEWABLE TABLETS PO SCH (09:55)
[2020-04-04] MEDS: LISINOPRIL 5 MG TABLET PO SCH (09:55)
[2020-04-04] MEDS: NICOTINE 7 MG/24 HOURS TOPICAL PATCH TD SCH (09:56)
[2020-04-04] MEDS: THIAMINE HCL 100 MG TABLET (FP) PO SCH (21:53)
[2020-04-04] MEDS: MELATONIN 5 MG TABLETS PO SCH (21:53)
[2020-04-05] MEDS ORDERED: glipiZIDE 5 MG TABLET (FP) ONE (03:10)
[2020-04-05] MEDS: metFORMIN HCL 500 MG TABLET (FP) PO SCH (06:18)
[2020-04-05] MEDS: sitaGLIPtin PHOSPHATE 50 MG TABLET PO SCH (06:18)
[2020-04-05] MEDS: glipiZIDE 10 MG TABLET (FP) PO SCH (06:18)
[2020-04-05] MEDS: INSULIN (LEVEMIR) 100 UNITS/ML UNITS SQ SCH (06:19)
[2020-04-05] MEDS: PRENATAL VITAMINS W/ FOLIC ACID TABLET (FP) PO SCH (10:44)
[2020-04-05] MEDS: ASPIRIN 81 MG CHEWABLE TABLETS PO SCH (10:44)
[2020-04-05] MEDS: LISINOPRIL 5 MG TABLET PO SCH (10:44)
[2020-04-05] MEDS: NICOTINE 7 MG/24 HOURS TOPICAL PATCH TD SCH (10:44)
[2020-04-05] MEDS: ACETAMINOPHEN 325 MG TABLET (FP) PO PRN (10:45)
[2020-04-05] MEDS: NAPROXEN 375 MG TABLET PO SCH (21:33)
[2020-04-05] MEDS: MELATONIN 5 MG TABLETS PO SCH (21:34)
[2020-04-05] MEDS: THIAMINE HCL 100 MG TABLET (FP) PO SCH (21:34)
[2020-04-06] MEDS ORDERED: glipiZIDE 5 MG TABLET (FP) ONE (03:07)
[2020-04-06] MEDS: sitaGLIPtin PHOSPHATE 50 MG TABLET PO SCH (06:16)
[2020-04-06] MEDS: metFORMIN HCL 500 MG TABLET (FP) PO SCH (06:16)
[2020-04-06] MEDS: glipiZIDE 10 MG TABLET (FP) PO SCH (06:16)
[2020-04-06] MEDS: INSULIN (LEVEMIR) 100 UNITS/ML UNITS SQ SCH (06:18)
[2020-04-06] MEDS: NAPROXEN 375 MG TABLET PO SCH ×2 (10:11→21:29)
[2020-04-06] MEDS: LISINOPRIL 5 MG TABLET PO SCH (10:11)
[2020-04-06] MEDS: ASPIRIN 81 MG CHEWABLE TABLETS PO SCH (10:11)
[2020-04-06] MEDS: PRENATAL VITAMINS W/ FOLIC ACID TABLET (FP) PO SCH (10:11)
[2020-04-06] MEDS: NICOTINE 7 MG/24 HOURS TOPICAL PATCH TD SCH (10:13)
[2020-04-06] MEDS: MELATONIN 5 MG TABLETS PO SCH (21:29)
[2020-04-06] MEDS: THIAMINE HCL 100 MG TABLET (FP) PO SCH (21:29)
[2020-04-07] MEDS ORDERED: glipiZIDE 5 MG TABLET (FP) ONE (03:19)
[2020-04-07] MEDS: metFORMIN HCL 500 MG TABLET (FP) PO SCH (06:07)
[2020-04-07] MEDS: sitaGLIPtin PHOSPHATE 50 MG TABLET PO SCH (06:08)
[2020-04-07] MEDS: INSULIN (LEVEMIR) 100 UNITS/ML UNITS SQ SCH (06:08)
[2020-04-07] MEDS: glipiZIDE 10 MG TABLET (FP) PO SCH (06:08)
[2020-04-07] MEDS: PRENATAL VITAMINS W/ FOLIC ACID TABLET (FP) PO SCH (09:31)
[2020-04-07] MEDS: ASPIRIN 81 MG CHEWABLE TABLETS PO SCH (09:31)
[2020-04-07] MEDS: NAPROXEN 375 MG TABLET PO SCH ×2 (09:31→23:06)
[2020-04-07] MEDS: LISINOPRIL 5 MG TABLET PO SCH (09:32)
[2020-04-07] MEDS: NICOTINE 7 MG/24 HOURS TOPICAL PATCH TD SCH (09:32)
[2020-04-07] MEDS: MELATONIN 5 MG TABLETS PO SCH (23:06)
[2020-04-07] MEDS: THIAMINE HCL 100 MG TABLET (FP) PO SCH (23:07)
[2020-04-08] MEDS ORDERED: PT OWN MED DRAWER 7, Y5N ONE (03:13)
[2020-04-08] MEDS: metFORMIN HCL 500 MG TABLET (FP) PO SCH (06:09)
[2020-04-08] MEDS: INSULIN (LEVEMIR) 100 UNITS/ML UNITS SQ SCH (06:09)
[2020-04-08] MEDS: sitaGLIPtin PHOSPHATE 50 MG TABLET PO SCH (06:09)
[2020-04-08] MEDS: glipiZIDE 10 MG TABLET (FP) PO SCH (06:09)
[2020-04-08] MEDS: LISINOPRIL 5 MG TABLET PO SCH (10:02)
[2020-04-08] MEDS: NAPROXEN 375 MG TABLET PO SCH ×2 (10:02→21:23)
[2020-04-08] MEDS: PRENATAL VITAMINS W/ FOLIC ACID TABLET (FP) PO SCH (10:02)
[2020-04-08] MEDS: ASPIRIN 81 MG CHEWABLE TABLETS PO SCH (10:03)
[2020-04-08] MEDS: NICOTINE 7 MG/24 HOURS TOPICAL PATCH TD SCH (10:03)
[2020-04-08] MEDS: ACETAMINOPHEN 325 MG TABLET (FP) PO PRN (20:00)
[2020-04-08] MEDS: THIAMINE HCL 100 MG TABLET (FP) PO SCH (21:24)
[2020-04-08] MEDS: MELATONIN 5 MG TABLETS PO SCH (21:24)
[2020-04-09] MEDS ORDERED: glipiZIDE 5 MG TABLET (FP) ONE (03:54)
[2020-04-09] MEDS ORDERED: PT OWN MED DRAWER 7, Y5N ONE (03:55)
[2020-04-09] MEDS ORDERED: INSULIN (LEVEMIR) 100 UNITS/ML UNITS SQ ONE (03:57)
[2020-04-09] MEDS: metFORMIN HCL 500 MG TABLET (FP) PO SCH (06:44)
[2020-04-09] MEDS: glipiZIDE 10 MG TABLET (FP) PO SCH (06:44)
[2020-04-09] MEDS: sitaGLIPtin PHOSPHATE 50 MG TABLET PO SCH (06:46)
[2020-04-09] MEDS: INSULIN (LEVEMIR) 100 UNITS/ML UNITS SQ SCH (07:00)
[2020-04-09] MEDS: PRENATAL VITAMINS W/ FOLIC ACID TABLET (FP) PO SCH (09:43)
[2020-04-09] MEDS: LISINOPRIL 5 MG TABLET PO SCH (09:44)
[2020-04-09] MEDS: ASPIRIN 81 MG CHEWABLE TABLETS PO SCH (09:44)
[2020-04-09] MEDS: NAPROXEN 375 MG TABLET PO SCH ×2 (09:44→21:08)
[2020-04-09] MEDS: NICOTINE 7 MG/24 HOURS TOPICAL PATCH TD SCH (09:44)
[2020-04-09] MEDS: THIAMINE HCL 100 MG TABLET (FP) PO SCH (21:07)
[2020-04-09] MEDS: MELATONIN 5 MG TABLETS PO SCH (21:07)
[2020-04-10] MEDS: INSULIN (LEVEMIR) 100 UNITS/ML UNITS SQ SCH ×2 (00:15→06:05)
[2020-04-10] MEDS: sitaGLIPtin PHOSPHATE 50 MG TABLET PO SCH (06:02)
[2020-04-10] MEDS: glipiZIDE 10 MG TABLET (FP) PO SCH (06:02)
[2020-04-10] MEDS: metFORMIN HCL 500 MG TABLET (FP) PO SCH (06:03)
[2020-04-10] MEDS: LISINOPRIL 5 MG TABLET PO SCH (09:46)
[2020-04-10] MEDS: PRENATAL VITAMINS W/ FOLIC ACID TABLET (FP) PO SCH (09:46)
[2020-04-10] MEDS: ASPIRIN 81 MG CHEWABLE TABLETS PO SCH (09:46)
[2020-04-10] MEDS: NAPROXEN 375 MG TABLET PO SCH ×2 (09:47→21:38)
[2020-04-10] MEDS: NICOTINE 7 MG/24 HOURS TOPICAL PATCH TD SCH (09:52)
[2020-04-10] MEDS: MELATONIN 5 MG TABLETS PO SCH (21:37)
[2020-04-10] MEDS: THIAMINE HCL 100 MG TABLET (FP) PO SCH (21:38)
[2020-04-11] MEDS: metFORMIN HCL 500 MG TABLET (FP) PO SCH (06:12)
[2020-04-11] MEDS: glipiZIDE 10 MG TABLET (FP) PO SCH (06:12)
[2020-04-11] MEDS: INSULIN (LEVEMIR) 100 UNITS/ML UNITS SQ SCH (06:13)
[2020-04-11] MEDS: sitaGLIPtin PHOSPHATE 50 MG TABLET PO SCH (06:13)
[2020-04-11] MEDS ORDERED: glipiZIDE 5 MG TABLET (FP) ONE (08:26)
[2020-04-11] MEDS: NAPROXEN 375 MG TABLET PO SCH ×2 (09:45→21:40)
[2020-04-11] MEDS: PRENATAL VITAMINS W/ FOLIC ACID TABLET (FP) PO SCH (09:45)
[2020-04-11] MEDS: ASPIRIN 81 MG CHEWABLE TABLETS PO SCH (09:45)
[2020-04-11] MEDS: LISINOPRIL 5 MG TABLET PO SCH (09:45)
[2020-04-11] MEDS: NICOTINE 7 MG/24 HOURS TOPICAL PATCH TD SCH (09:46)
[2020-04-11] MEDS: THIAMINE HCL 100 MG TABLET (FP) PO SCH (21:40)
[2020-04-11] MEDS: MELATONIN 5 MG TABLETS PO SCH (21:41)
[2020-04-12] MEDS: metFORMIN HCL 500 MG TABLET (FP) PO SCH (06:19)
[2020-04-12] MEDS: glipiZIDE 10 MG TABLET (FP) PO SCH (06:19)
[2020-04-12] MEDS: INSULIN (LEVEMIR) 100 UNITS/ML UNITS SQ SCH (06:19)
[2020-04-12] MEDS: sitaGLIPtin PHOSPHATE 50 MG TABLET PO SCH (06:19)
[2020-04-12] MEDS: ASPIRIN 81 MG CHEWABLE TABLETS PO SCH (09:45)
[2020-04-12] MEDS: NAPROXEN 375 MG TABLET PO SCH ×2 (09:45→22:24)
[2020-04-12] MEDS: PRENATAL VITAMINS W/ FOLIC ACID TABLET (FP) PO SCH (09:45)
[2020-04-12] MEDS: LISINOPRIL 5 MG TABLET PO SCH (09:45)
[2020-04-12] MEDS: NICOTINE 7 MG/24 HOURS TOPICAL PATCH TD SCH (09:46)
[2020-04-12] MEDS: THIAMINE HCL 100 MG TABLET (FP) PO SCH (22:24)
[2020-04-12] MEDS: MELATONIN 5 MG TABLETS PO SCH (22:24)
[2020-04-13] MEDS ORDERED: hydrOXYzine PAMOATE 50 MG CAPSULE (FP) PO ONE (02:04)
[2020-04-13] MEDS ORDERED: glipiZIDE 5 MG TABLET (FP) ONE (03:56)
[2020-04-13] MEDS: metFORMIN HCL 500 MG TABLET (FP) PO SCH (06:09)
[2020-04-13] MEDS: glipiZIDE 10 MG TABLET (FP) PO SCH (06:10)
[2020-04-13] MEDS: sitaGLIPtin PHOSPHATE 50 MG TABLET PO SCH (06:10)
[2020-04-13] MEDS: INSULIN (LEVEMIR) 100 UNITS/ML UNITS SQ SCH (06:13)
[2020-04-13] MEDS: NICOTINE 7 MG/24 HOURS TOPICAL PATCH TD SCH (10:05)
[2020-04-13] MEDS: PRENATAL VITAMINS W/ FOLIC ACID TABLET (FP) PO SCH (10:05)
[2020-04-13] MEDS: LISINOPRIL 5 MG TABLET PO SCH (10:05)
[2020-04-13] MEDS: ASPIRIN 81 MG CHEWABLE TABLETS PO SCH (10:05)
[2020-04-13] MEDS: NAPROXEN 375 MG TABLET PO SCH ×2 (11:05→21:09)
[2020-04-13] MEDS: THIAMINE HCL 100 MG TABLET (FP) PO SCH (21:09)
[2020-04-13] MEDS: MELATONIN 5 MG TABLETS PO SCH (21:09)
[2020-04-14] MEDS: metFORMIN HCL 500 MG TABLET (FP) PO SCH (06:10)
[2020-04-14] MEDS: INSULIN (LEVEMIR) 100 UNITS/ML UNITS SQ SCH (06:10)
[2020-04-14] MEDS: sitaGLIPtin PHOSPHATE 50 MG TABLET PO SCH (06:10)
[2020-04-14] MEDS: glipiZIDE 10 MG TABLET (FP) PO SCH (06:10)
[2020-04-14] MEDS: NAPROXEN 375 MG TABLET PO SCH ×2 (09:43→21:35)
[2020-04-14] MEDS: PRENATAL VITAMINS W/ FOLIC ACID TABLET (FP) PO SCH (09:43)
[2020-04-14] MEDS: ASPIRIN 81 MG CHEWABLE TABLETS PO SCH (09:43)
[2020-04-14] MEDS: LISINOPRIL 5 MG TABLET PO SCH (09:43)
[2020-04-14] MEDS: NICOTINE 7 MG/24 HOURS TOPICAL PATCH TD SCH (09:45)
[2020-04-14] MEDS: THIAMINE HCL 100 MG TABLET (FP) PO SCH (21:34)
[2020-04-14] MEDS: MELATONIN 5 MG TABLETS PO SCH (21:34)
[2020-04-15] MEDS: metFORMIN HCL 500 MG TABLET (FP) PO SCH (06:00)
[2020-04-15] MEDS: sitaGLIPtin PHOSPHATE 50 MG TABLET PO SCH (06:00)
[2020-04-15] MEDS: glipiZIDE 10 MG TABLET (FP) PO SCH (06:00)
[2020-04-15] MEDS: INSULIN (LEVEMIR) 100 UNITS/ML UNITS SQ SCH (06:02)
[2020-04-15 07:01] VITALS: BP 149/82; PULSE 62; TEMP 98.1
[2020-04-15] MEDS: LISINOPRIL 5 MG TABLET PO SCH (09:18)
[2020-04-15] MEDS ORDERED: PT OWN MED DRAWER 7, Y5N ONE (09:18)
[2020-04-15] MEDS: ASPIRIN 81 MG CHEWABLE TABLETS PO SCH (09:18)
[2020-04-15] MEDS: NAPROXEN 375 MG TABLET PO SCH (09:18)
[2020-04-15] MEDS: NICOTINE 7 MG/24 HOURS TOPICAL PATCH TD SCH (09:19)
[2020-04-15] MEDS: PRENATAL VITAMINS W/ FOLIC ACID TABLET (FP) PO SCH (09:19)
== END 2020-04-15 09:20 | disposition home or self-care (01) | DRG 772 ==
LOC: YASAS 12:25 → Y3W 17:08
PROVIDERS: ADMIT Allergy & Immunology; ATTEND Allergy & Immunology
PROC: HZ42ZZZ Group Counseling for Substance Abuse Treatment, Cognitive-Behavioral (ICD-10-PCS; principal; 2020-04-01)
DX: F10.20 Alcohol dependence, uncomplicated (principal); F14.20 Cocaine dependence, uncomplicated; F17.213 Nicotine dependence, cigarettes, with withdrawal; F19.24 Other psychoactive substance dependence with psychoactive substance-induced mood disorder; F41.9 Anxiety disorder, unspecified; E10.9 Type 1 diabetes mellitus without complications; Z79.4 Long term (current) use of insulin; I10 Essential (primary) hypertension; J45.909 Unspecified asthma, uncomplicated; M54.5 Low back pain; E66.01 Morbid (severe) obesity due to excess calories; Z68.41 Body mass index [BMI] 40.0-44.9, adult; Z91.013 Allergy to seafood
CPT/HCPCS: 36415; 71046-TC-FY; 80053; 81003; 82962; 85027; 86780; 93005; 93010; C9803; U0003

== ENCOUNTER 2021-10-19 10:18 | Inpatient (IN) | payer OTHER ==
[2021-10-19 11:07] VITALS: BMI 44.5
[2021-10-19] MEDS ORDERED: NICOTINE 10 MG CARTRIDGE (INHALER) IH PRN (12:28)
[2021-10-19] MEDS ORDERED: ONDANSETRON *ODT* 4 MG TABLET SL PRN (12:28)
[2021-10-19] MEDS ORDERED: MAGNESIUM HYDROX 2400MG/30ML ORAL SUSPENSION 30 ML CUP PO PRN (12:28)
[2021-10-19] MEDS ORDERED: MAGNESIUM CITRATE 300 ML BOTTLE PO PRN (12:28)
[2021-10-19] MEDS ORDERED: ACETAMINOPHEN 325 MG TABLET (FP) PO PRN ×2 (12:28)
[2021-10-19] MEDS ORDERED: IBUPROFEN 400 MG TABLET (FP) PO PRN (12:28)
[2021-10-19] MEDS ORDERED: METHOCARBAMOL 500 MG TABLET PO PRN (12:28)
[2021-10-19] MEDS ORDERED: MAG HYDROX/AL HYDROX/SIMETH 30 ML UNIT-DOSE CUP PO PRN (12:28)
[2021-10-19] MEDS ORDERED: BENZOCAINE/MENTHOL (CHLORASEPTIC ) LOZENGE MM PRN (12:28)
[2021-10-19] MEDS ORDERED: chlordiazePOXIDE HCL 25 MG CAPSULE PO PRN (12:28)
[2021-10-19] MEDS ORDERED: BISMUTH SUBSALICYLATE 524 MG/30 ML PO PRN (12:28)
[2021-10-19] MEDS ORDERED: LOPERAMIDE HCL 2 MG CAPSULE PO PRN (12:28)
[2021-10-19] MEDS ORDERED: DICYCLOMINE HCL 10 MG CAPSULE PO PRN (12:28)
[2021-10-19] MEDS ORDERED: PATIENT'S OWN MEDICATION (NON-FORMULARY) (Sitagliptin Phos/Metformin Hcl [Janumet 50-1,000 PO SCH (12:45)
[2021-10-19] MEDS: LISINOPRIL 5 MG TABLET PO SCH (13:15)
[2021-10-19] MEDS: ASPIRIN 81 MG CHEWABLE TABLETS PO SCH (13:15)
[2021-10-19] MEDS: PRENATAL VITAMINS W/ FOLIC ACID TABLET (FP) PO SCH (13:15)
[2021-10-19] MEDS: NICOTINE 14 MG/24 HOURS TOPICAL PATCH TD SCH (13:16)
[2021-10-19] MEDS: hydrOXYzine PAMOATE 25 MG CAPSULE (FP) PO SCH ×3 (13:16→23:11)
[2021-10-19 15:46] LABS: HEMATOCRIT 40.6 % (35.4-49); HEMOGLOBIN 13.7 GM/dL (11.7-16.9); MCH 30.9 pg (25.7-33.7); MCHC 33.8 g/dl (32.0-35.9); MEAN CELL VOLUME 91.3 fl (80-96); MEAN PLT VOLUME 8.3 fl (7.5-11.1); PLATELET COUNT 164 10^3/uL (134-434); RBC 4.44 M/mm3 (4.00-5.60); RDW 14.5 % (11.9-15.9); WHITE BLOOD COUNT 6.6 K/mm3 (4.0-10.0)
[2021-10-19 16:11] LABS: ALBUMIN 3.3 g/dl (3.4-5.0); BLOOD UREA NITROGEN 11.1 mg/dL (7-18); CALCIUM 9.5 mg/dL (8.5-10.1)
[2021-10-19 16:14] LABS: CREATININE 0.9 mg/dL (0.55-1.3)
[2021-10-19 16:15] LABS: BILIRUBIN,TOTAL 0.4 mg/dL (0.2-1)
[2021-10-19 16:16] LABS: TOT PROT 7.2 g/dl (6.4-8.2)
[2021-10-19] MEDS: chlordiazePOXIDE HCL 25 MG CAPSULE PO SCH ×2 (17:55→23:12)
[2021-10-19] MEDS: metFORMIN HCL 500 MG TABLET (FP) PO SCH (17:55)
[2021-10-19] MEDS: sitaGLIPtin PHOSPHATE 50 MG TABLET PO SCH (23:09)
[2021-10-19] MEDS: ATORVASTATIN CA 20 MG TABLET (FP) PO SCH (23:09)
[2021-10-19] MEDS: MELATONIN 5 MG TABLETS PO SCH (23:09)
[2021-10-19] MEDS: THIAMINE HCL 100 MG TABLET (FP) PO SCH (23:12)
[2021-10-20] MEDS: chlordiazePOXIDE HCL 25 MG CAPSULE PO SCH (05:21)
[2021-10-20] MEDS: hydrOXYzine PAMOATE 25 MG CAPSULE (FP) PO SCH ×5 (05:24→23:59)
[2021-10-20] MEDS: sitaGLIPtin PHOSPHATE 50 MG TABLET PO SCH ×2 (06:24→18:30)
[2021-10-20] MEDS: metFORMIN HCL 500 MG TABLET (FP) PO SCH ×2 (06:24→18:30)
[2021-10-20] MEDS: INSULIN (LEVEMIR) 100 UNITS/ML UNITS SQ SCH (08:06)
[2021-10-20] MEDS ORDERED: diazePAM 5 MG TABLET PO PRN (09:39)
[2021-10-20] MEDS: PRENATAL VITAMINS W/ FOLIC ACID TABLET (FP) PO SCH (11:03)
[2021-10-20] MEDS: ASPIRIN 81 MG CHEWABLE TABLETS PO SCH (11:04)
[2021-10-20] MEDS: diazePAM 5 MG TABLET PO SCH ×3 (11:04→23:59)
[2021-10-20] MEDS: LISINOPRIL 5 MG TABLET PO SCH (11:04)
[2021-10-20] MEDS: NICOTINE 14 MG/24 HOURS TOPICAL PATCH TD SCH (11:05)
[2021-10-20] MEDS: IBUPROFEN 600 MG TABLET (FP) PO PRN (11:05)
[2021-10-20] MEDS ORDERED: ALBUTEROL SO4 HFA INHALER IH PRN (12:48)
[2021-10-20] MEDS: MELATONIN 5 MG TABLETS PO SCH (23:59)
[2021-10-20] MEDS: traZODone HCL 50 MG TABLET (FP) PO SCH (23:59)
[2021-10-20] MEDS: THIAMINE HCL 100 MG TABLET (FP) PO SCH (23:59)
[2021-10-20] MEDS: ATORVASTATIN CA 20 MG TABLET (FP) PO SCH (23:59)
[2021-10-21] MEDS ORDERED: chlordiazePOXIDE HCL 25 MG CAPSULE PO SCH (05:00)
[2021-10-21] MEDS: hydrOXYzine PAMOATE 25 MG CAPSULE (FP) PO SCH ×5 (05:34→23:41)
[2021-10-21] MEDS: diazePAM 5 MG TABLET PO SCH ×4 (05:35→23:41)
[2021-10-21] MEDS: sitaGLIPtin PHOSPHATE 50 MG TABLET PO SCH ×2 (06:38→18:25)
[2021-10-21] MEDS: metFORMIN HCL 500 MG TABLET (FP) PO SCH ×2 (06:38→18:25)
[2021-10-21] MEDS: INSULIN (LEVEMIR) 100 UNITS/ML UNITS SQ SCH (06:40)
[2021-10-21] MEDS: PRENATAL VITAMINS W/ FOLIC ACID TABLET (FP) PO SCH (10:57)
[2021-10-21] MEDS: ASPIRIN 81 MG CHEWABLE TABLETS PO SCH (10:57)
[2021-10-21] MEDS: LISINOPRIL 5 MG TABLET PO SCH (10:57)
[2021-10-21] MEDS: CITALOPRAM HYDROBROMIDE 20 MG TABLET PO SCH (10:57)
[2021-10-21] MEDS: NICOTINE 14 MG/24 HOURS TOPICAL PATCH TD SCH (11:05)
[2021-10-21] MEDS: traZODone HCL 50 MG TABLET (FP) PO SCH (23:41)
[2021-10-21] MEDS: MELATONIN 5 MG TABLETS PO SCH (23:41)
[2021-10-21] MEDS: ATORVASTATIN CA 20 MG TABLET (FP) PO SCH (23:41)
[2021-10-21] MEDS: THIAMINE HCL 100 MG TABLET (FP) PO SCH (23:41)
[2021-10-22] MEDS ORDERED: chlordiazePOXIDE HCL 10 MG CAPSULE PO PRN
[2021-10-22] MEDS ORDERED: chlordiazePOXIDE HCL 10 MG CAPSULE PO SCH (05:00)
[2021-10-22] MEDS: hydrOXYzine PAMOATE 25 MG CAPSULE (FP) PO SCH ×5 (06:26→22:01)
[2021-10-22] MEDS: diazePAM 5 MG TABLET PO SCH ×3 (06:26→22:01)
[2021-10-22] MEDS: metFORMIN HCL 500 MG TABLET (FP) PO SCH ×2 (07:24→18:11)
[2021-10-22] MEDS: sitaGLIPtin PHOSPHATE 50 MG TABLET PO SCH ×2 (07:24→18:12)
[2021-10-22] MEDS: IBUPROFEN 600 MG TABLET (FP) PO PRN (07:25)
[2021-10-22] MEDS: INSULIN (LEVEMIR) 100 UNITS/ML UNITS SQ SCH (07:27)
[2021-10-22] MEDS: LISINOPRIL 5 MG TABLET PO SCH (10:33)
[2021-10-22] MEDS: CITALOPRAM HYDROBROMIDE 20 MG TABLET PO SCH (10:33)
[2021-10-22] MEDS: ASPIRIN 81 MG CHEWABLE TABLETS PO SCH (10:34)
[2021-10-22] MEDS: PRENATAL VITAMINS W/ FOLIC ACID TABLET (FP) PO SCH (10:34)
[2021-10-22] MEDS: NICOTINE 14 MG/24 HOURS TOPICAL PATCH TD SCH (10:40)
[2021-10-22] MEDS: MELATONIN 5 MG TABLETS PO SCH (22:01)
[2021-10-22] MEDS: ATORVASTATIN CA 20 MG TABLET (FP) PO SCH (22:01)
[2021-10-22] MEDS: THIAMINE HCL 100 MG TABLET (FP) PO SCH (22:01)
[2021-10-22] MEDS: traZODone HCL 50 MG TABLET (FP) PO SCH (22:01)
[2021-10-23] MEDS ORDERED: INSULIN (LEVEMIR) 100 UNITS/ML UNITS SQ ONE ×2 (04:43→04:46)
[2021-10-23] MEDS ORDERED: chlordiazePOXIDE HCL 10 MG CAPSULE PO SCH (05:00)
[2021-10-23] MEDS: diazePAM 5 MG TABLET PO SCH ×2 (07:38→17:52)
[2021-10-23] MEDS: hydrOXYzine PAMOATE 25 MG CAPSULE (FP) PO SCH ×5 (07:38→23:11)
[2021-10-23] MEDS: metFORMIN HCL 500 MG TABLET (FP) PO SCH ×2 (08:24→17:52)
[2021-10-23] MEDS: sitaGLIPtin PHOSPHATE 50 MG TABLET PO SCH ×2 (08:24→17:53)
[2021-10-23] MEDS: INSULIN (LEVEMIR) 100 UNITS/ML UNITS SQ SCH (08:24)
[2021-10-23] MEDS: LISINOPRIL 5 MG TABLET PO SCH (10:18)
[2021-10-23] MEDS: ASPIRIN 81 MG CHEWABLE TABLETS PO SCH (10:18)
[2021-10-23] MEDS: NICOTINE 14 MG/24 HOURS TOPICAL PATCH TD SCH (10:18)
[2021-10-23] MEDS: PRENATAL VITAMINS W/ FOLIC ACID TABLET (FP) PO SCH (10:18)
[2021-10-23] MEDS: CITALOPRAM HYDROBROMIDE 20 MG TABLET PO SCH (10:18)
[2021-10-23] MEDS: amLODIPine BESYLATE 2.5 MG TABLET (FP) PO SCH (15:05)
[2021-10-23] MEDS: traZODone HCL 50 MG TABLET (FP) PO SCH (23:11)
[2021-10-23] MEDS: MELATONIN 5 MG TABLETS PO SCH (23:11)
[2021-10-23] MEDS: THIAMINE HCL 100 MG TABLET (FP) PO SCH (23:11)
[2021-10-23] MEDS: ATORVASTATIN CA 20 MG TABLET (FP) PO SCH (23:11)
[2021-10-24] MEDS ORDERED: chlordiazePOXIDE HCL 10 MG CAPSULE PO ONE (05:00)
[2021-10-24] MEDS ORDERED: diazePAM 5 MG TABLET PO ONE (06:00)
[2021-10-24] MEDS: metFORMIN HCL 500 MG TABLET (FP) PO SCH (06:00)
[2021-10-24] MEDS: hydrOXYzine PAMOATE 25 MG CAPSULE (FP) PO SCH ×2 (06:01→10:52)
[2021-10-24] MEDS: sitaGLIPtin PHOSPHATE 50 MG TABLET PO SCH (06:01)
[2021-10-24] MEDS: INSULIN (LEVEMIR) 100 UNITS/ML UNITS SQ SCH (07:57)
[2021-10-24 09:26] VITALS: BP 142/89; PULSE 57; RESP 18; TEMP 97
[2021-10-24] MEDS: CITALOPRAM HYDROBROMIDE 20 MG TABLET PO SCH (10:52)
[2021-10-24] MEDS: PRENATAL VITAMINS W/ FOLIC ACID TABLET (FP) PO SCH (10:52)
[2021-10-24] MEDS: LISINOPRIL 5 MG TABLET PO SCH (10:52)
[2021-10-24] MEDS: ASPIRIN 81 MG CHEWABLE TABLETS PO SCH (10:52)
[2021-10-24] MEDS: NICOTINE 14 MG/24 HOURS TOPICAL PATCH TD SCH (11:07)
[2021-10-24] MEDS: amLODIPine BESYLATE 2.5 MG TABLET (FP) PO SCH (11:20)
== END 2021-10-24 11:26 | disposition other institution (70) | DRG 774 ==
LOC: YASAS 10:18 → Y6N 12:30
PROVIDERS: ADMIT Allergy & Immunology; ATTEND Surgery
PROC: HZ2ZZZZ Detoxification Services for Substance Abuse Treatment (ICD-10-PCS; principal; 2021-10-19)
DX: F10.230 Alcohol dependence with withdrawal, uncomplicated (principal); F14.20 Cocaine dependence, uncomplicated; F12.20 Cannabis dependence, uncomplicated; F17.210 Nicotine dependence, cigarettes, uncomplicated; F19.24 Other psychoactive substance dependence with psychoactive substance-induced mood disorder; F19.282 Other psychoactive substance dependence with psychoactive substance-induced sleep disorder; F39 Unspecified mood [affective] disorder; F31.89 Other bipolar disorder; F20.9 Schizophrenia, unspecified; F41.9 Anxiety disorder, unspecified; I10 Essential (primary) hypertension; E11.65 Type 2 diabetes mellitus with hyperglycemia; E78.5 Hyperlipidemia, unspecified; I83.93 Asymptomatic varicose veins of bilateral lower extremities; M54.59 Other low back pain; G89.29 Other chronic pain; E66.9 Obesity, unspecified; Z68.41 Body mass index [BMI] 40.0-44.9, adult; Z86.11 Personal history of tuberculosis; Z79.4 Long term (current) use of insulin; Z91.013 Allergy to seafood; Z91.51 Personal history of suicidal behavior; Z56.0 Unemployment, unspecified; Z59.00 Homelessness unspecified
CPT/HCPCS: 36415; 71046-TC-FY; 80053; 82962; 85027; 86780; C9803-CS; U0003; U0005

== ENCOUNTER 2021-10-24 11:35 | Inpatient (IN) | payer OTHER ==
[2021-10-24] MEDS ORDERED: MAGNESIUM HYDROX 2400MG/30ML ORAL SUSPENSION 30 ML CUP PO PRN (12:58)
[2021-10-24] MEDS ORDERED: ACETAMINOPHEN 325 MG TABLET (FP) PO PRN (12:58)
[2021-10-24] MEDS ORDERED: LOPERAMIDE HCL 2 MG CAPSULE PO PRN (12:58)
[2021-10-24] MEDS ORDERED: IBUPROFEN 400 MG TABLET (FP) PO PRN (12:58)
[2021-10-24] MEDS ORDERED: guaiFENesin 200 MG/10 ML 10 ML UNIT-DOSE CUPS PO PRN (12:58)
[2021-10-24] MEDS ORDERED: NICOTINE 10 MG CARTRIDGE (INHALER) IH PRN (12:58)
[2021-10-24] MEDS ORDERED: MAGNESIUM CITRATE 300 ML BOTTLE PO PRN (12:58)
[2021-10-24] MEDS ORDERED: MAG HYDROX/AL HYDROX/SIMETH 30 ML UNIT-DOSE CUP PO PRN (12:58)
[2021-10-24] MEDS ORDERED: NICOTINE POLACRILEX 2 MG GUM BUC PRN (12:58)
[2021-10-24] MEDS ORDERED: BENZOCAINE/MENTHOL (CHLORASEPTIC ) LOZENGE MM PRN (12:58)
[2021-10-24] MEDS ORDERED: hydrOXYzine PAMOATE 25 MG CAPSULE (FP) PO PRN (12:58)
[2021-10-24] MEDS ORDERED: P-EPHED 60MG/TRIPROLIDI 2.5MG TABLET PO PRN (12:58)
[2021-10-24] MEDS ORDERED: ALBUTEROL SO4 HFA INHALER IH PRN (13:08)
[2021-10-24] MEDS: sitaGLIPtin PHOSPHATE 50 MG TABLET PO SCH (17:20)
[2021-10-24] MEDS ORDERED: INSULIN SLIDING SCALE (NOVOLOG) 1 VIAL SQ ONE (17:21)
[2021-10-24] MEDS: metFORMIN HCL 500 MG TABLET (FP) PO SCH (17:22)
[2021-10-24] MEDS: INSULIN SLIDING SCALE (NOVOLOG) 1 VIAL SQ SCH ×2 (17:23→22:00)
[2021-10-24] MEDS: traZODone HCL 50 MG TABLET (FP) PO SCH (21:43)
[2021-10-24] MEDS: GABAPENTIN 100 MG CAPSULE PO SCH (21:43)
[2021-10-24] MEDS: THIAMINE HCL 100 MG TABLET (FP) PO SCH (21:44)
[2021-10-25] MEDS: metFORMIN HCL 500 MG TABLET (FP) PO SCH ×2 (06:36→16:55)
[2021-10-25] MEDS: GABAPENTIN 100 MG CAPSULE PO SCH ×3 (06:36→21:21)
[2021-10-25] MEDS: INSULIN SLIDING SCALE (NOVOLOG) 1 VIAL SQ SCH ×4 (06:37→21:24)
[2021-10-25] MEDS: sitaGLIPtin PHOSPHATE 50 MG TABLET PO SCH ×2 (06:37→17:02)
[2021-10-25] MEDS: INSULIN (LEVEMIR) 100 UNITS/ML UNITS SQ SCH (06:55)
[2021-10-25] MEDS: ASPIRIN 81 MG CHEWABLE TABLETS PO SCH (10:47)
[2021-10-25] MEDS: LISINOPRIL 5 MG TABLET PO SCH (10:47)
[2021-10-25] MEDS: amLODIPine BESYLATE 2.5 MG TABLET (FP) PO SCH (10:47)
[2021-10-25] MEDS: CITALOPRAM HYDROBROMIDE 20 MG TABLET PO SCH (10:47)
[2021-10-25] MEDS: PRENATAL VITAMINS W/ FOLIC ACID TABLET (FP) PO SCH (10:49)
[2021-10-25 11:12] LABS: URINE APPEARANCE CLEAR; URINE BILIRUBIN NEGATIVE (NEGATIVE); URINE COLOR YELLOW; URINE GLUCOSE (UA) NEGATIVE (NEGATIVE); URINE KETONE NEGATIVE (NEGATIVE); URINE LEUK ESTERASE NEGATIVE (NEGATIVE); URINE NITRITE NEGATIVE (NEGATIVE); URINE PROTEIN TRACE (NEGATIVE); URINE UROBILINOGEN 0.2 mg/dL (0.2-1.0)
[2021-10-25] MEDS ORDERED: INSULIN SLIDING SCALE (NOVOLOG) 1 VIAL SQ ONE (12:04)
[2021-10-25] MEDS: MELATONIN 5 MG TABLETS PO PRN (21:21)
[2021-10-25] MEDS: THIAMINE HCL 100 MG TABLET (FP) PO SCH (21:21)
[2021-10-25] MEDS: traZODone HCL 50 MG TABLET (FP) PO SCH (21:21)
[2021-10-26] MEDS: sitaGLIPtin PHOSPHATE 50 MG TABLET PO SCH ×2 (06:46→16:41)
[2021-10-26] MEDS: GABAPENTIN 100 MG CAPSULE PO SCH ×3 (06:46→21:40)
[2021-10-26] MEDS: metFORMIN HCL 500 MG TABLET (FP) PO SCH ×2 (06:46→16:42)
[2021-10-26] MEDS: INSULIN SLIDING SCALE (NOVOLOG) 1 VIAL SQ SCH ×4 (06:47→21:42)
[2021-10-26] MEDS: INSULIN (LEVEMIR) 100 UNITS/ML UNITS SQ SCH (07:04)
[2021-10-26] MEDS: PRENATAL VITAMINS W/ FOLIC ACID TABLET (FP) PO SCH (10:29)
[2021-10-26] MEDS: amLODIPine BESYLATE 2.5 MG TABLET (FP) PO SCH (10:29)
[2021-10-26] MEDS: LISINOPRIL 5 MG TABLET PO SCH (10:29)
[2021-10-26] MEDS: ASPIRIN 81 MG CHEWABLE TABLETS PO SCH (10:29)
[2021-10-26] MEDS: CITALOPRAM HYDROBROMIDE 20 MG TABLET PO SCH (10:29)
[2021-10-26] MEDS ORDERED: INSULIN SLIDING SCALE (NOVOLOG) 1 VIAL SQ ONE (12:17)
[2021-10-26] MEDS: traZODone HCL 50 MG TABLET (FP) PO SCH (21:40)
[2021-10-26] MEDS: THIAMINE HCL 100 MG TABLET (FP) PO SCH (21:40)
[2021-10-26] MEDS: MELATONIN 5 MG TABLETS PO PRN (21:40)
[2021-10-27] MEDS: sitaGLIPtin PHOSPHATE 50 MG TABLET PO SCH ×2 (06:31→16:51)
[2021-10-27] MEDS: metFORMIN HCL 500 MG TABLET (FP) PO SCH ×2 (06:31→16:51)
[2021-10-27] MEDS: GABAPENTIN 100 MG CAPSULE PO SCH ×3 (06:32→21:13)
[2021-10-27] MEDS: INSULIN SLIDING SCALE (NOVOLOG) 1 VIAL SQ SCH ×4 (06:33→21:15)
[2021-10-27] MEDS: INSULIN (LEVEMIR) 100 UNITS/ML UNITS SQ SCH (06:59)
[2021-10-27] MEDS: CITALOPRAM HYDROBROMIDE 20 MG TABLET PO SCH (10:18)
[2021-10-27] MEDS: amLODIPine BESYLATE 2.5 MG TABLET (FP) PO SCH (10:18)
[2021-10-27] MEDS: PRENATAL VITAMINS W/ FOLIC ACID TABLET (FP) PO SCH (10:18)
[2021-10-27] MEDS: ASPIRIN 81 MG CHEWABLE TABLETS PO SCH (10:18)
[2021-10-27] MEDS: LISINOPRIL 5 MG TABLET PO SCH (10:18)
[2021-10-27] MEDS: THIAMINE HCL 100 MG TABLET (FP) PO SCH (21:13)
[2021-10-27] MEDS: MELATONIN 5 MG TABLETS PO PRN (21:13)
[2021-10-27] MEDS: traZODone HCL 50 MG TABLET (FP) PO SCH (21:13)
[2021-10-28] MEDS: GABAPENTIN 100 MG CAPSULE PO SCH ×3 (06:14→22:31)
[2021-10-28] MEDS: metFORMIN HCL 500 MG TABLET (FP) PO SCH ×2 (06:14→16:20)
[2021-10-28] MEDS: sitaGLIPtin PHOSPHATE 50 MG TABLET PO SCH ×2 (06:14→16:19)
[2021-10-28] MEDS: INSULIN SLIDING SCALE (NOVOLOG) 1 VIAL SQ SCH ×4 (06:15→22:33)
[2021-10-28] MEDS: INSULIN (LEVEMIR) 100 UNITS/ML UNITS SQ SCH (06:57)
[2021-10-28] MEDS: ASPIRIN 81 MG CHEWABLE TABLETS PO SCH (09:59)
[2021-10-28] MEDS: LISINOPRIL 5 MG TABLET PO SCH (09:59)
[2021-10-28] MEDS: CITALOPRAM HYDROBROMIDE 20 MG TABLET PO SCH (09:59)
[2021-10-28] MEDS: amLODIPine BESYLATE 2.5 MG TABLET (FP) PO SCH (10:00)
[2021-10-28] MEDS: PRENATAL VITAMINS W/ FOLIC ACID TABLET (FP) PO SCH (10:00)
[2021-10-28] MEDS: traZODone HCL 50 MG TABLET (FP) PO SCH (22:31)
[2021-10-28] MEDS: MELATONIN 5 MG TABLETS PO PRN (22:32)
[2021-10-28] MEDS: THIAMINE HCL 100 MG TABLET (FP) PO SCH (22:32)
[2021-10-29] MEDS: INSULIN (LEVEMIR) 100 UNITS/ML UNITS SQ SCH (06:39)
[2021-10-29] MEDS: metFORMIN HCL 500 MG TABLET (FP) PO SCH ×2 (06:49→17:55)
[2021-10-29] MEDS: GABAPENTIN 100 MG CAPSULE PO SCH ×3 (06:49→21:10)
[2021-10-29] MEDS: sitaGLIPtin PHOSPHATE 50 MG TABLET PO SCH ×2 (06:49→17:55)
[2021-10-29] MEDS: INSULIN SLIDING SCALE (NOVOLOG) 1 VIAL SQ SCH ×4 (06:50→21:11)
[2021-10-29] MEDS: LISINOPRIL 5 MG TABLET PO SCH (10:22)
[2021-10-29] MEDS: ASPIRIN 81 MG CHEWABLE TABLETS PO SCH (10:22)
[2021-10-29] MEDS: amLODIPine BESYLATE 2.5 MG TABLET (FP) PO SCH (10:22)
[2021-10-29] MEDS: CITALOPRAM HYDROBROMIDE 20 MG TABLET PO SCH (10:22)
[2021-10-29] MEDS: PRENATAL VITAMINS W/ FOLIC ACID TABLET (FP) PO SCH (10:22)
[2021-10-29] MEDS: traZODone HCL 50 MG TABLET (FP) PO SCH (21:10)
[2021-10-29] MEDS: MELATONIN 5 MG TABLETS PO PRN (21:11)
[2021-10-29] MEDS: THIAMINE HCL 100 MG TABLET (FP) PO SCH (21:11)
[2021-10-30] MEDS: sitaGLIPtin PHOSPHATE 50 MG TABLET PO SCH ×2 (06:25→16:41)
[2021-10-30] MEDS: GABAPENTIN 100 MG CAPSULE PO SCH ×3 (06:25→21:11)
[2021-10-30] MEDS: metFORMIN HCL 500 MG TABLET (FP) PO SCH ×2 (06:25→16:43)
[2021-10-30] MEDS: INSULIN SLIDING SCALE (NOVOLOG) 1 VIAL SQ SCH ×4 (06:26→21:12)
[2021-10-30] MEDS: INSULIN (LEVEMIR) 100 UNITS/ML UNITS SQ SCH (06:50)
[2021-10-30] MEDS: PRENATAL VITAMINS W/ FOLIC ACID TABLET (FP) PO SCH (10:03)
[2021-10-30] MEDS: LISINOPRIL 5 MG TABLET PO SCH (10:03)
[2021-10-30] MEDS: amLODIPine BESYLATE 2.5 MG TABLET (FP) PO SCH (10:03)
[2021-10-30] MEDS: ASPIRIN 81 MG CHEWABLE TABLETS PO SCH (10:03)
[2021-10-30] MEDS: CITALOPRAM HYDROBROMIDE 20 MG TABLET PO SCH (10:03)
[2021-10-30] MEDS ORDERED: INSULIN SLIDING SCALE (NOVOLOG) 1 VIAL SQ ONE (16:42)
[2021-10-30] MEDS: traZODone HCL 50 MG TABLET (FP) PO SCH (21:11)
[2021-10-30] MEDS: THIAMINE HCL 100 MG TABLET (FP) PO SCH (21:11)
[2021-10-30] MEDS: MELATONIN 5 MG TABLETS PO PRN (21:11)
[2021-10-31] MEDS: metFORMIN HCL 500 MG TABLET (FP) PO SCH ×2 (06:06→16:32)
[2021-10-31] MEDS: sitaGLIPtin PHOSPHATE 50 MG TABLET PO SCH ×2 (06:06→16:33)
[2021-10-31] MEDS: GABAPENTIN 100 MG CAPSULE PO SCH ×3 (06:06→21:10)
[2021-10-31] MEDS: INSULIN SLIDING SCALE (NOVOLOG) 1 VIAL SQ SCH ×4 (06:07→21:10)
[2021-10-31] MEDS: INSULIN (LEVEMIR) 100 UNITS/ML UNITS SQ SCH (06:58)
[2021-10-31] MEDS: LISINOPRIL 5 MG TABLET PO SCH (10:07)
[2021-10-31] MEDS: PRENATAL VITAMINS W/ FOLIC ACID TABLET (FP) PO SCH (10:07)
[2021-10-31] MEDS: CITALOPRAM HYDROBROMIDE 20 MG TABLET PO SCH (10:07)
[2021-10-31] MEDS: amLODIPine BESYLATE 2.5 MG TABLET (FP) PO SCH (10:07)
[2021-10-31] MEDS: ASPIRIN 81 MG CHEWABLE TABLETS PO SCH (10:07)
[2021-10-31] MEDS ORDERED: INSULIN SLIDING SCALE (NOVOLOG) 1 VIAL SQ ONE (11:50)
[2021-10-31] MEDS: traZODone HCL 50 MG TABLET (FP) PO SCH (21:10)
[2021-10-31] MEDS: THIAMINE HCL 100 MG TABLET (FP) PO SCH (21:10)
[2021-10-31] MEDS: MELATONIN 5 MG TABLETS PO PRN (21:10)
[2021-11-01] MEDS: GABAPENTIN 100 MG CAPSULE PO SCH ×3 (06:05→21:08)
[2021-11-01] MEDS: sitaGLIPtin PHOSPHATE 50 MG TABLET PO SCH ×2 (06:06→16:21)
[2021-11-01] MEDS: metFORMIN HCL 500 MG TABLET (FP) PO SCH ×2 (06:06→16:21)
[2021-11-01] MEDS: INSULIN (LEVEMIR) 100 UNITS/ML UNITS SQ SCH (06:44)
[2021-11-01] MEDS: INSULIN SLIDING SCALE (NOVOLOG) 1 VIAL SQ SCH ×4 (06:45→21:09)
[2021-11-01 06:48] VITALS: RESP 18
[2021-11-01] MEDS: PRENATAL VITAMINS W/ FOLIC ACID TABLET (FP) PO SCH (10:11)
[2021-11-01] MEDS: LISINOPRIL 5 MG TABLET PO SCH (10:11)
[2021-11-01] MEDS: ASPIRIN 81 MG CHEWABLE TABLETS PO SCH (10:11)
[2021-11-01] MEDS: amLODIPine BESYLATE 2.5 MG TABLET (FP) PO SCH (10:12)
[2021-11-01] MEDS: CITALOPRAM HYDROBROMIDE 20 MG TABLET PO SCH (10:12)
[2021-11-01] MEDS: MELATONIN 5 MG TABLETS PO PRN (21:08)
[2021-11-01] MEDS: traZODone HCL 50 MG TABLET (FP) PO SCH (21:08)
[2021-11-01] MEDS: THIAMINE HCL 100 MG TABLET (FP) PO SCH (21:08)
[2021-11-02] MEDS: sitaGLIPtin PHOSPHATE 50 MG TABLET PO SCH ×2 (06:12→16:30)
[2021-11-02] MEDS: GABAPENTIN 100 MG CAPSULE PO SCH ×3 (06:12→21:17)
[2021-11-02] MEDS: metFORMIN HCL 500 MG TABLET (FP) PO SCH ×2 (06:12→16:30)
[2021-11-02] MEDS: INSULIN SLIDING SCALE (NOVOLOG) 1 VIAL SQ SCH ×4 (06:13→21:18)
[2021-11-02] MEDS: INSULIN (LEVEMIR) 100 UNITS/ML UNITS SQ SCH (06:39)
[2021-11-02] MEDS: CITALOPRAM HYDROBROMIDE 20 MG TABLET PO SCH (10:02)
[2021-11-02] MEDS: ASPIRIN 81 MG CHEWABLE TABLETS PO SCH (10:02)
[2021-11-02] MEDS: PRENATAL VITAMINS W/ FOLIC ACID TABLET (FP) PO SCH (10:02)
[2021-11-02] MEDS: amLODIPine BESYLATE 2.5 MG TABLET (FP) PO SCH (10:02)
[2021-11-02] MEDS: LISINOPRIL 5 MG TABLET PO SCH (10:02)
[2021-11-02] MEDS: MELATONIN 5 MG TABLETS PO PRN (21:17)
[2021-11-02] MEDS: THIAMINE HCL 100 MG TABLET (FP) PO SCH (21:17)
[2021-11-02] MEDS: traZODone HCL 50 MG TABLET (FP) PO SCH (21:17)
[2021-11-03] MEDS: GABAPENTIN 100 MG CAPSULE PO SCH ×3 (06:28→23:37)
[2021-11-03] MEDS: metFORMIN HCL 500 MG TABLET (FP) PO SCH ×2 (06:28→16:30)
[2021-11-03] MEDS: sitaGLIPtin PHOSPHATE 50 MG TABLET PO SCH ×2 (06:28→16:30)
[2021-11-03] MEDS: INSULIN SLIDING SCALE (NOVOLOG) 1 VIAL SQ SCH ×4 (06:29→23:37)
[2021-11-03] MEDS: INSULIN (LEVEMIR) 100 UNITS/ML UNITS SQ SCH (06:29)
[2021-11-03 08:44] VITALS: TEMP 97.1
[2021-11-03] MEDS: ASPIRIN 81 MG CHEWABLE TABLETS PO SCH (10:16)
[2021-11-03] MEDS: LISINOPRIL 5 MG TABLET PO SCH (10:16)
[2021-11-03] MEDS: PRENATAL VITAMINS W/ FOLIC ACID TABLET (FP) PO SCH (10:16)
[2021-11-03] MEDS: CITALOPRAM HYDROBROMIDE 20 MG TABLET PO SCH (10:16)
[2021-11-03] MEDS: amLODIPine BESYLATE 2.5 MG TABLET (FP) PO SCH (10:16)
[2021-11-03] MEDS: traZODone HCL 50 MG TABLET (FP) PO SCH (23:37)
[2021-11-03] MEDS: THIAMINE HCL 100 MG TABLET (FP) PO SCH (23:38)
[2021-11-04] MEDS: metFORMIN HCL 500 MG TABLET (FP) PO SCH (06:33)
[2021-11-04] MEDS: GABAPENTIN 100 MG CAPSULE PO SCH (06:33)
[2021-11-04] MEDS: sitaGLIPtin PHOSPHATE 50 MG TABLET PO SCH (06:34)
[2021-11-04] MEDS: INSULIN SLIDING SCALE (NOVOLOG) 1 VIAL SQ SCH (06:34)
[2021-11-04] MEDS: INSULIN (LEVEMIR) 100 UNITS/ML UNITS SQ SCH ×2 (06:47→07:59)
[2021-11-04 06:57] VITALS: BP 145/82; PULSE 75
[2021-11-04] MEDS: CITALOPRAM HYDROBROMIDE 20 MG TABLET PO SCH (09:44)
[2021-11-04] MEDS: LISINOPRIL 5 MG TABLET PO SCH (09:44)
[2021-11-04] MEDS: PRENATAL VITAMINS W/ FOLIC ACID TABLET (FP) PO SCH (09:44)
[2021-11-04] MEDS: ASPIRIN 81 MG CHEWABLE TABLETS PO SCH (09:44)
[2021-11-04] MEDS: amLODIPine BESYLATE 2.5 MG TABLET (FP) PO SCH (09:44)
== END 2021-11-04 09:53 | disposition home or self-care (01) | DRG 772 ==
LOC: YASAS 11:35 → Y3W 11:38
PROVIDERS: ADMIT Allergy & Immunology; ATTEND Psychiatry & Neurology Pain Medicine
PROC: HZ42ZZZ Group Counseling for Substance Abuse Treatment, Cognitive-Behavioral (ICD-10-PCS; principal; 2021-10-24)
DX: F10.20 Alcohol dependence, uncomplicated (principal); F14.20 Cocaine dependence, uncomplicated; F12.20 Cannabis dependence, uncomplicated; F17.210 Nicotine dependence, cigarettes, uncomplicated; F19.24 Other psychoactive substance dependence with psychoactive substance-induced mood disorder; F32.A Depression, unspecified; I10 Essential (primary) hypertension; E78.5 Hyperlipidemia, unspecified; E11.40 Type 2 diabetes mellitus with diabetic neuropathy, unspecified; Z79.4 Long term (current) use of insulin; J45.909 Unspecified asthma, uncomplicated; E66.01 Morbid (severe) obesity due to excess calories; Z68.41 Body mass index [BMI] 40.0-44.9, adult; R26.2 Difficulty in walking, not elsewhere classified; Z99.89 Dependence on other enabling machines and devices; Z91.013 Allergy to seafood; Z56.0 Unemployment, unspecified
CPT/HCPCS: 81003; 82962

== ENCOUNTER 2022-06-05 11:13 | Inpatient (IN) | payer OTHER ==
[2022-06-05 12:04] VITALS: BMI 45.6
[2022-06-05] MEDS ORDERED: BENZOCAINE/MENTHOL (CHLORASEPTIC ) LOZENGE MM PRN (13:33)
[2022-06-05] MEDS ORDERED: guaiFENesin 600 MG TABLET.ER (FP) PO PRN (13:33)
[2022-06-05] MEDS ORDERED: MAG HYDROX/AL HYDROX/SIMETH 30 ML UNIT-DOSE CUP PO PRN (13:33)
[2022-06-05] MEDS ORDERED: LOPERAMIDE HCL 2 MG CAPSULE PO PRN (13:33)
[2022-06-05] MEDS ORDERED: MAGNESIUM HYDROX 2400MG/30ML ORAL SUSPENSION 30 ML CUP PO PRN (13:33)
[2022-06-05] MEDS ORDERED: NICOTINE 10 MG CARTRIDGE (INHALER) IH PRN (13:33)
[2022-06-05] MEDS ORDERED: BENZONATATE 200 MG CAPSULE PO PRN (13:33)
[2022-06-05] MEDS ORDERED: POLYETHYLENE GLYCOL (HEALTHYLAX) 3350 17 GM PACKET PO PRN (13:33)
[2022-06-05] MEDS ORDERED: ACETAMINOPHEN 325 MG TABLET (FP) PO PRN (13:33)
[2022-06-05] MEDS ORDERED: IBUPROFEN 600 MG TABLET (FP) PO PRN (13:33)
[2022-06-05] MEDS ORDERED: NICOTINE POLACRILEX 2 MG GUM BUC PRN (13:33)
[2022-06-05] MEDS ORDERED: IBUPROFEN 400 MG TABLET (FP) PO PRN (13:33)
[2022-06-05] MEDS ORDERED: NICOTINE 7 MG/24 HOURS TOPICAL PATCH TD PRN (13:33)
[2022-06-05] MEDS ORDERED: METHOCARBAMOL 500 MG TABLET PO PRN (13:33)
[2022-06-05] MEDS ORDERED: BISMUTH SUBSALICYLATE 524 MG/30 ML PO PRN (13:33)
[2022-06-05] MEDS ORDERED: hydrOXYzine PAMOATE 25 MG CAPSULE (FP) PO PRN (13:33)
[2022-06-05] MEDS ORDERED: ONDANSETRON *ODT* 4 MG TABLET SL PRN (13:33)
[2022-06-05] MEDS ORDERED: DICYCLOMINE HCL 10 MG CAPSULE PO PRN (13:33)
[2022-06-05] MEDS ORDERED: chlordiazePOXIDE HCL 25 MG CAPSULE PO PRN (13:33)
[2022-06-05] MEDS ORDERED: diazePAM 5 MG TABLET PO PRN (14:09)
[2022-06-05] MEDS ORDERED: ALBUTEROL SO4 HFA INHALER IH PRN (15:37)
[2022-06-05] MEDS ORDERED: ASPIRIN 81 MG CHEWABLE TABLETS PO SCH (15:45)
[2022-06-05] MEDS: LISINOPRIL 5 MG TABLET PO SCH (15:50)
[2022-06-05] MEDS: amLODIPine BESYLATE 2.5 MG TABLET (FP) PO SCH (15:50)
[2022-06-05] MEDS ORDERED: chlordiazePOXIDE HCL 25 MG CAPSULE PO SCH (17:00)
[2022-06-05] MEDS: metFORMIN HCL 500 MG TABLET (FP) PO SCH (17:26)
[2022-06-05] MEDS: diazePAM 5 MG TABLET PO SCH ×2 (17:27→22:11)
[2022-06-05] MEDS: INSULIN SLIDING SCALE (NOVOLOG) 1 VIAL SQ SCH ×2 (17:29→22:15)
[2022-06-05 18:15] LABS: HEMATOCRIT 40.6 % (35.4-49); MCH 29.3 pg (25.7-33.7); MCHC 34.4 g/dl (32.0-35.9); MEAN CELL VOLUME 85.2 fl (80-96); MEAN PLT VOLUME 8.4 fl (7.5-11.1); PLATELET COUNT 250 10^3/uL (134-434); RBC 4.77 M/mm3 (4.00-5.60); RDW 14.3 % (11.9-15.9); WHITE BLOOD COUNT 6.8 K/mm3 (4.0-10.0)
[2022-06-05 18:46] LABS: CALCIUM 9.1 mg/dL (8.5-10.1)
[2022-06-05 18:47] LABS: ALBUMIN 3.7 g/dl (3.4-5.0); BLOOD UREA NITROGEN 22.2 mg/dL (7-18)
[2022-06-05 18:48] LABS: CREATININE 1.2 mg/dL (0.55-1.3)
[2022-06-05 18:50] LABS: BILIRUBIN,TOTAL 0.6 mg/dL (0.2-1); TOT PROT 7.9 g/dl (6.4-8.2)
[2022-06-05] MEDS: traZODone HCL 50 MG TABLET (FP) PO SCH (22:11)
[2022-06-05] MEDS: ATORVASTATIN CA 20 MG TABLET (FP) PO SCH (22:11)
[2022-06-05] MEDS: MELATONIN 5 MG TABLETS PO SCH (22:11)
[2022-06-05] MEDS: THIAMINE HCL 100 MG TABLET (FP) PO SCH (22:11)
[2022-06-06] MEDS: diazePAM 5 MG TABLET PO SCH ×4 (05:55→22:01)
[2022-06-06] MEDS: INSULIN SLIDING SCALE (NOVOLOG) 1 VIAL SQ SCH ×4 (06:18→22:02)
[2022-06-06] MEDS: metFORMIN HCL 500 MG TABLET (FP) PO SCH ×2 (06:18→17:20)
[2022-06-06] MEDS: LISINOPRIL 5 MG TABLET PO SCH (10:46)
[2022-06-06] MEDS: amLODIPine BESYLATE 2.5 MG TABLET (FP) PO SCH (10:47)
[2022-06-06] MEDS: ASPIRIN 81 MG CHEWABLE TABLETS PO SCH (10:47)
[2022-06-06] MEDS: CITALOPRAM HYDROBROMIDE 20 MG TABLET PO SCH (10:47)
[2022-06-06] MEDS: PRENATAL VITAMINS W/ FOLIC ACID TABLET (FP) PO SCH (10:53)
[2022-06-06] MEDS ORDERED: INSULIN (NOVOLOG) ASPART 100 UNITS/ML 10ML VIAL ONE (17:06)
[2022-06-06] MEDS: ATORVASTATIN CA 20 MG TABLET (FP) PO SCH (22:02)
[2022-06-06] MEDS: MELATONIN 5 MG TABLETS PO SCH (22:02)
[2022-06-06] MEDS: THIAMINE HCL 100 MG TABLET (FP) PO SCH (22:02)
[2022-06-06] MEDS: traZODone HCL 50 MG TABLET (FP) PO SCH (22:02)
[2022-06-07] MEDS ORDERED: chlordiazePOXIDE HCL 25 MG CAPSULE PO SCH (05:00)
[2022-06-07] MEDS: diazePAM 5 MG TABLET PO SCH ×3 (05:45→21:59)
[2022-06-07] MEDS: metFORMIN HCL 500 MG TABLET (FP) PO SCH ×2 (06:10→16:49)
[2022-06-07] MEDS: INSULIN SLIDING SCALE (NOVOLOG) 1 VIAL SQ SCH ×4 (07:12→21:58)
[2022-06-07] MEDS ORDERED: INSULIN (NOVOLOG) ASPART 100 UNITS/ML 10ML VIAL ONE ×2 (07:39→16:48)
[2022-06-07] MEDS: CITALOPRAM HYDROBROMIDE 20 MG TABLET PO SCH (11:15)
[2022-06-07] MEDS: amLODIPine BESYLATE 2.5 MG TABLET (FP) PO SCH (11:15)
[2022-06-07] MEDS: ASPIRIN 81 MG CHEWABLE TABLETS PO SCH (11:15)
[2022-06-07] MEDS: LISINOPRIL 5 MG TABLET PO SCH (11:15)
[2022-06-07] MEDS: PRENATAL VITAMINS W/ FOLIC ACID TABLET (FP) PO SCH (11:17)
[2022-06-07] MEDS: THIAMINE HCL 100 MG TABLET (FP) PO SCH (21:59)
[2022-06-07] MEDS: MELATONIN 5 MG TABLETS PO SCH (21:59)
[2022-06-07] MEDS: traZODone HCL 50 MG TABLET (FP) PO SCH (21:59)
[2022-06-07] MEDS: ATORVASTATIN CA 20 MG TABLET (FP) PO SCH (21:59)
[2022-06-08] MEDS ORDERED: chlordiazePOXIDE HCL 10 MG CAPSULE PO PRN
[2022-06-08] MEDS ORDERED: chlordiazePOXIDE HCL 10 MG CAPSULE PO SCH (05:00)
[2022-06-08] MEDS: metFORMIN HCL 500 MG TABLET (FP) PO SCH ×2 (06:17→16:56)
[2022-06-08] MEDS: diazePAM 5 MG TABLET PO SCH ×2 (06:17→17:39)
[2022-06-08] MEDS ORDERED: INSULIN (NOVOLOG) ASPART 100 UNITS/ML 10ML VIAL ONE ×3 (06:19→21:44)
[2022-06-08] MEDS: INSULIN SLIDING SCALE (NOVOLOG) 1 VIAL SQ SCH ×4 (06:21→22:07)
[2022-06-08] MEDS: LISINOPRIL 5 MG TABLET PO SCH (10:50)
[2022-06-08] MEDS: CITALOPRAM HYDROBROMIDE 20 MG TABLET PO SCH (10:50)
[2022-06-08] MEDS: PRENATAL VITAMINS W/ FOLIC ACID TABLET (FP) PO SCH (10:50)
[2022-06-08] MEDS: ASPIRIN 81 MG CHEWABLE TABLETS PO SCH (10:51)
[2022-06-08] MEDS: amLODIPine BESYLATE 2.5 MG TABLET (FP) PO SCH (10:51)
[2022-06-08] MEDS: THIAMINE HCL 100 MG TABLET (FP) PO SCH (22:01)
[2022-06-08] MEDS: ATORVASTATIN CA 20 MG TABLET (FP) PO SCH (22:02)
[2022-06-08] MEDS: traZODone HCL 50 MG TABLET (FP) PO SCH (22:06)
[2022-06-08] MEDS: MELATONIN 5 MG TABLETS PO SCH (22:07)
[2022-06-09] MEDS ORDERED: chlordiazePOXIDE HCL 10 MG CAPSULE PO SCH (05:00)
[2022-06-09] MEDS: metFORMIN HCL 500 MG TABLET (FP) PO SCH (05:59)
[2022-06-09] MEDS ORDERED: diazePAM 5 MG TABLET PO ONE (06:00)
[2022-06-09 06:23] VITALS: RESP 18
[2022-06-09] MEDS: INSULIN SLIDING SCALE (NOVOLOG) 1 VIAL SQ SCH ×2 (07:46→11:41)
[2022-06-09] MEDS ORDERED: INSULIN (NOVOLOG) ASPART 100 UNITS/ML 10ML VIAL ONE (07:55)
[2022-06-09 09:32] VITALS: BP 132/68; PULSE 75; TEMP 97.7
[2022-06-09] MEDS: PRENATAL VITAMINS W/ FOLIC ACID TABLET (FP) PO SCH (10:23)
[2022-06-09] MEDS: LISINOPRIL 5 MG TABLET PO SCH (10:23)
[2022-06-09] MEDS: ASPIRIN 81 MG CHEWABLE TABLETS PO SCH (10:23)
[2022-06-09] MEDS: amLODIPine BESYLATE 2.5 MG TABLET (FP) PO SCH (10:23)
[2022-06-09] MEDS: CITALOPRAM HYDROBROMIDE 20 MG TABLET PO SCH (10:23)
[2022-06-10] MEDS ORDERED: chlordiazePOXIDE HCL 10 MG CAPSULE PO ONE (05:00)
== END 2022-06-09 12:30 | disposition other institution (70) | DRG 774 ==
LOC: YASAS 11:13 → Y6N 13:55
PROVIDERS: ADMIT Allergy & Immunology; ATTEND Surgery
PROC: HZ2ZZZZ Detoxification Services for Substance Abuse Treatment (ICD-10-PCS; principal; 2022-06-05)
DX: F10.230 Alcohol dependence with withdrawal, uncomplicated (principal); F14.20 Cocaine dependence, uncomplicated; F17.210 Nicotine dependence, cigarettes, uncomplicated; F19.282 Other psychoactive substance dependence with psychoactive substance-induced sleep disorder; I10 Essential (primary) hypertension; E11.9 Type 2 diabetes mellitus without complications; Z79.84 Long term (current) use of oral hypoglycemic drugs; J45.909 Unspecified asthma, uncomplicated; R60.0 Localized edema; E66.01 Morbid (severe) obesity due to excess calories; Z68.42 Body mass index [BMI] 45.0-49.9, adult; Z56.0 Unemployment, unspecified; Z59.00 Homelessness unspecified
CPT/HCPCS: 36415; 71046-TC-FY; 80053; 82962; 85027; 86780; 87811; C9803-CS; U0003; U0005

== ENCOUNTER 2022-06-09 12:47 | Inpatient (IN) | payer OTHER ==
[2022-06-09 13:03] VITALS: RESP 18
[2022-06-09] MEDS ORDERED: NALOXONE HCL 0.4 MG/ML VIAL IVPUSH PRN (13:19)
[2022-06-09] MEDS ORDERED: COLLOIDAL OATMEAL 1 BAR EACH TP PRN (13:19)
[2022-06-09] MEDS ORDERED: AMMONIUM LACTATE 12% LOTION 225 GM BOTTLE TP PRN (13:19)
[2022-06-09] MEDS ORDERED: METHOCARBAMOL 500 MG TABLET PO PRN (13:19)
[2022-06-09] MEDS ORDERED: IBUPROFEN 400 MG TABLET (FP) PO PRN (13:19)
[2022-06-09] MEDS ORDERED: NALOXONE HCL (KLOXXADO) 8 MG SPRAY NS PRN (13:19)
[2022-06-09] MEDS ORDERED: MAG HYDROX/AL HYDROX/SIMETH 30 ML UNIT-DOSE CUP PO PRN (13:19)
[2022-06-09] MEDS ORDERED: LOPERAMIDE HCL 2 MG CAPSULE PO PRN (13:19)
[2022-06-09] MEDS ORDERED: BENZOCAINE/MENTHOL (CHLORASEPTIC ) LOZENGE MM PRN (13:19)
[2022-06-09] MEDS ORDERED: IBUPROFEN 600 MG TABLET (FP) PO PRN (13:19)
[2022-06-09] MEDS ORDERED: MAGNESIUM HYDROX 2400MG/30ML ORAL SUSPENSION 30 ML CUP PO PRN (13:19)
[2022-06-09] MEDS ORDERED: POLYETHYLENE GLYCOL (HEALTHYLAX) 3350 17 GM PACKET PO PRN (13:19)
[2022-06-09] MEDS ORDERED: guaiFENesin 600 MG TABLET.ER (FP) PO PRN (13:19)
[2022-06-09] MEDS ORDERED: ACETAMINOPHEN 325 MG TABLET (FP) PO PRN (13:19)
[2022-06-09] MEDS ORDERED: hydrOXYzine PAMOATE 25 MG CAPSULE (FP) PO PRN (13:19)
[2022-06-09] MEDS ORDERED: NICOTINE POLACRILEX 2 MG GUM BUC PRN (13:19)
[2022-06-09] MEDS ORDERED: ALBUTEROL SO4 HFA INHALER IH PRN (13:26)
[2022-06-09] MEDS ORDERED: INSULIN (NOVOLOG) ASPART 100 UNITS/ML 10ML VIAL ONE ×2 (17:11→21:01)
[2022-06-09] MEDS: INSULIN SLIDING SCALE (NOVOLOG) 1 VIAL SQ SCH ×2 (17:24→21:15)
[2022-06-09] MEDS: metFORMIN HCL 500 MG TABLET (FP) PO SCH (17:24)
[2022-06-09] MEDS: THIAMINE HCL 100 MG TABLET (FP) PO SCH (21:16)
[2022-06-09] MEDS: MELATONIN 5 MG TABLETS PO SCH (21:16)
[2022-06-09] MEDS: traZODone HCL 50 MG TABLET (FP) PO SCH (21:16)
[2022-06-10] MEDS: metFORMIN HCL 500 MG TABLET (FP) PO SCH ×2 (06:24→17:27)
[2022-06-10] MEDS ORDERED: INSULIN (NOVOLOG) ASPART 100 UNITS/ML 10ML VIAL ONE (06:25)
[2022-06-10] MEDS: INSULIN SLIDING SCALE (NOVOLOG) 1 VIAL SQ SCH ×4 (06:26→21:21)
[2022-06-10] MEDS: ASPIRIN 81 MG CHEWABLE TABLETS PO SCH (10:13)
[2022-06-10] MEDS: LISINOPRIL 5 MG TABLET PO SCH (10:13)
[2022-06-10] MEDS: amLODIPine BESYLATE 2.5 MG TABLET (FP) PO SCH (10:13)
[2022-06-10] MEDS: NICOTINE 7 MG/24 HOURS TOPICAL PATCH TD SCH (10:14)
[2022-06-10] MEDS: CITALOPRAM HYDROBROMIDE 20 MG TABLET PO SCH (10:14)
[2022-06-10] MEDS: PRENATAL VITAMINS W/ FOLIC ACID TABLET (FP) PO SCH (10:14)
[2022-06-10] MEDS: traZODone HCL 50 MG TABLET (FP) PO SCH (21:21)
[2022-06-10] MEDS: MELATONIN 5 MG TABLETS PO SCH (21:21)
[2022-06-10] MEDS: THIAMINE HCL 100 MG TABLET (FP) PO SCH (21:22)
[2022-06-11] MEDS: metFORMIN HCL 500 MG TABLET (FP) PO SCH ×2 (06:49→17:06)
[2022-06-11] MEDS: INSULIN SLIDING SCALE (NOVOLOG) 1 VIAL SQ SCH ×4 (06:50→21:17)
[2022-06-11] MEDS: CITALOPRAM HYDROBROMIDE 20 MG TABLET PO SCH (09:48)
[2022-06-11] MEDS: ASPIRIN 81 MG CHEWABLE TABLETS PO SCH (09:48)
[2022-06-11] MEDS: PRENATAL VITAMINS W/ FOLIC ACID TABLET (FP) PO SCH (09:48)
[2022-06-11] MEDS: LISINOPRIL 5 MG TABLET PO SCH (09:48)
[2022-06-11] MEDS: amLODIPine BESYLATE 2.5 MG TABLET (FP) PO SCH (09:49)
[2022-06-11] MEDS: NICOTINE 7 MG/24 HOURS TOPICAL PATCH TD SCH (09:49)
[2022-06-11] MEDS ORDERED: INSULIN (NOVOLOG) ASPART 100 UNITS/ML 10ML VIAL ONE (11:12)
[2022-06-11] MEDS: THIAMINE HCL 100 MG TABLET (FP) PO SCH (21:17)
[2022-06-11] MEDS: MELATONIN 5 MG TABLETS PO SCH (21:17)
[2022-06-11] MEDS: traZODone HCL 50 MG TABLET (FP) PO SCH (21:17)
[2022-06-12] MEDS: metFORMIN HCL 500 MG TABLET (FP) PO SCH ×2 (06:21→16:52)
[2022-06-12] MEDS: INSULIN SLIDING SCALE (NOVOLOG) 1 VIAL SQ SCH ×4 (06:23→21:14)
[2022-06-12] MEDS: PRENATAL VITAMINS W/ FOLIC ACID TABLET (FP) PO SCH (09:41)
[2022-06-12] MEDS: CITALOPRAM HYDROBROMIDE 20 MG TABLET PO SCH (09:42)
[2022-06-12] MEDS: LISINOPRIL 5 MG TABLET PO SCH (09:42)
[2022-06-12] MEDS: ASPIRIN 81 MG CHEWABLE TABLETS PO SCH (09:42)
[2022-06-12] MEDS: NICOTINE 7 MG/24 HOURS TOPICAL PATCH TD SCH (09:43)
[2022-06-12] MEDS: amLODIPine BESYLATE 2.5 MG TABLET (FP) PO SCH (09:43)
[2022-06-12] MEDS: traZODone HCL 50 MG TABLET (FP) PO SCH (21:13)
[2022-06-12] MEDS: THIAMINE HCL 100 MG TABLET (FP) PO SCH (21:13)
[2022-06-12] MEDS: MELATONIN 5 MG TABLETS PO SCH (21:14)
[2022-06-13 05:55] VITALS: TEMP 97.1
[2022-06-13] MEDS: metFORMIN HCL 500 MG TABLET (FP) PO SCH (06:02)
[2022-06-13] MEDS: INSULIN SLIDING SCALE (NOVOLOG) 1 VIAL SQ SCH ×2 (08:45→11:59)
[2022-06-13 09:16] VITALS: BP 132/71; PULSE 76
[2022-06-13] MEDS: PRENATAL VITAMINS W/ FOLIC ACID TABLET (FP) PO SCH (10:02)
[2022-06-13] MEDS: ASPIRIN 81 MG CHEWABLE TABLETS PO SCH (10:02)
[2022-06-13] MEDS: LISINOPRIL 5 MG TABLET PO SCH (10:02)
[2022-06-13] MEDS: CITALOPRAM HYDROBROMIDE 20 MG TABLET PO SCH (10:02)
[2022-06-13] MEDS: amLODIPine BESYLATE 2.5 MG TABLET (FP) PO SCH (10:03)
[2022-06-13] MEDS: NICOTINE 7 MG/24 HOURS TOPICAL PATCH TD SCH (10:03)
[2022-06-13] MEDS ORDERED: INSULIN (NOVOLOG) ASPART 100 UNITS/ML 10ML VIAL ONE (12:03)
[2022-06-13] MEDS ORDERED: ATORVASTATIN CA 20 MG TABLET (FP) PO SCH (22:00)
== END 2022-06-13 14:40 | disposition home or self-care (01) | DRG 772 ==
LOC: YASAS 12:47 → Y5N 12:48
PROVIDERS: ADMIT Allergy & Immunology; ATTEND Psychiatry & Neurology Pain Medicine
PROC: HZ42ZZZ Group Counseling for Substance Abuse Treatment, Cognitive-Behavioral (ICD-10-PCS; principal; 2022-06-09)
DX: F10.20 Alcohol dependence, uncomplicated (principal); F14.20 Cocaine dependence, uncomplicated; F17.210 Nicotine dependence, cigarettes, uncomplicated; F19.282 Other psychoactive substance dependence with psychoactive substance-induced sleep disorder; F19.24 Other psychoactive substance dependence with psychoactive substance-induced mood disorder; F31.9 Bipolar disorder, unspecified; I10 Essential (primary) hypertension; I83.93 Asymptomatic varicose veins of bilateral lower extremities; J45.20 Mild intermittent asthma, uncomplicated; R76.11 Nonspecific reaction to tuberculin skin test without active tuberculosis; E11.65 Type 2 diabetes mellitus with hyperglycemia; Z79.84 Long term (current) use of oral hypoglycemic drugs; E66.01 Morbid (severe) obesity due to excess calories; Z68.42 Body mass index [BMI] 45.0-49.9, adult
CPT/HCPCS: 82962

== ENCOUNTER 2022-09-28 09:54 | Inpatient (IN) | payer OTHER ==
[2022-09-28 10:21] VITALS: BMI 43.2
[2022-09-28] MEDS ORDERED: IBUPROFEN 600 MG TABLET (FP) PO PRN (11:10)
[2022-09-28] MEDS ORDERED: ACETAMINOPHEN 325 MG TABLET (FP) PO PRN (11:10)
[2022-09-28] MEDS ORDERED: DICYCLOMINE HCL 10 MG CAPSULE PO PRN (11:10)
[2022-09-28] MEDS ORDERED: ONDANSETRON *ODT* 4 MG TABLET SL PRN (11:10)
[2022-09-28] MEDS ORDERED: NALOXONE HCL (KLOXXADO) 8 MG SPRAY NS PRN (11:10)
[2022-09-28] MEDS ORDERED: NALOXONE HCL 0.4 MG/ML VIAL IM PRN (11:10)
[2022-09-28] MEDS ORDERED: BENZOCAINE/MENTHOL (CHLORASEPTIC ) LOZENGE MM PRN (11:10)
[2022-09-28] MEDS ORDERED: IBUPROFEN 400 MG TABLET (FP) PO PRN (11:10)
[2022-09-28] MEDS ORDERED: BENZONATATE 200 MG CAPSULE PO PRN (11:10)
[2022-09-28] MEDS ORDERED: MAG HYDROX/AL HYDROX/SIMETH 30 ML UNIT-DOSE CUP PO PRN (11:10)
[2022-09-28] MEDS ORDERED: BISMUTH SUBSALICYLATE 262 MG/15 ML BTL PO PRN (11:10)
[2022-09-28] MEDS ORDERED: NICOTINE POLACRILEX 2 MG GUM BUC PRN (11:10)
[2022-09-28] MEDS ORDERED: LOPERAMIDE HCL 2 MG CAPSULE PO PRN (11:10)
[2022-09-28] MEDS ORDERED: POLYETHYLENE GLYCOL (HEALTHYLAX) 3350 17 GM PACKET PO PRN (11:10)
[2022-09-28] MEDS ORDERED: MAGNESIUM HYDROX 2400MG/30ML ORAL SUSPENSION 30 ML CUP PO PRN (11:10)
[2022-09-28] MEDS ORDERED: guaiFENesin 600 MG TABLET.ER (FP) PO PRN (11:10)
[2022-09-28] MEDS ORDERED: cloNIDine HCL 0.1 MG TABLET PO ONE (12:15)
[2022-09-28] MEDS ORDERED: INSULIN (NOVOLOG) ASPART 100 UNITS/ML 10ML VIAL ONE (16:45)
[2022-09-28] MEDS: INSULIN SLIDING SCALE (NOVOLOG) 1 VIAL SQ SCH (16:46)
[2022-09-28] MEDS: traZODone HCL 50 MG TABLET (FP) PO SCH (23:41)
[2022-09-28] MEDS: MELATONIN 5 MG TABLETS PO SCH (23:41)
[2022-09-28] MEDS: THIAMINE HCL 100 MG TABLET (FP) PO SCH (23:41)
[2022-09-29] MEDS: INSULIN SLIDING SCALE (NOVOLOG) 1 VIAL SQ SCH ×4 (06:24→22:50)
[2022-09-29] MEDS: PRENATAL VITAMINS W/ FOLIC ACID TABLET (FP) PO SCH (10:53)
[2022-09-29] MEDS: LISINOPRIL 20 MG TABLET PO SCH (10:53)
[2022-09-29] MEDS: METHOCARBAMOL 500 MG TABLET PO PRN (10:53)
[2022-09-29] MEDS: hydrOXYzine PAMOATE 25 MG CAPSULE (FP) PO PRN (10:53)
[2022-09-29] MEDS: CITALOPRAM HYDROBROMIDE 20 MG TABLET PO SCH (10:53)
[2022-09-29] MEDS: NICOTINE 14 MG/24 HOURS TOPICAL PATCH TD SCH (10:54)
[2022-09-29] MEDS ORDERED: diazePAM 5 MG TABLET PO SCH (11:00)
[2022-09-29] MEDS ORDERED: PNEUMOC 20-VAL CONJ-DIP CRM/PF 0.5 ML SYRINGE IM ONE (12:00)
[2022-09-29 12:03] LABS: HEMATOCRIT 40.7 % (35.4-49); HEMOGLOBIN 13.4 GM/dL (11.7-16.9); MCH 29.7 pg (25.7-33.7); MCHC 32.9 g/dl (32.0-35.9); MEAN CELL VOLUME 90.3 fl (80-96); PLATELET COUNT 219 10^3/uL (134-434); RDW 14.9 % (11.9-15.9); WHITE BLOOD COUNT 3.8 K/mm3 (4.0-10.0)
[2022-09-29 12:11] LABS: CALCIUM 8.7 mg/dL (8.5-10.1); POTASSIUM 4.7 mmol/L (3.5-5.1)
[2022-09-29 12:12] LABS: ALBUMIN 3.3 g/dl (3.4-5.0); BLOOD UREA NITROGEN 11.8 mg/dL (7-18)
[2022-09-29] MEDS ORDERED: diazePAM 5 MG TABLET PO PRN (12:12)
[2022-09-29 12:17] LABS: BILIRUBIN,TOTAL 0.2 mg/dL (0.2-1); TOT PROT 7.3 g/dl (6.4-8.2)
[2022-09-29] MEDS ORDERED: diazePAM 5 MG TABLET PO ONE (13:15)
[2022-09-29] MEDS: metFORMIN HCL 500 MG TABLET (FP) PO SCH (16:55)
[2022-09-29] MEDS: diazePAM 5 MG TABLET PO SCH ×2 (17:50→22:59)
[2022-09-29] MEDS ORDERED: INSULIN (NOVOLOG) ASPART 100 UNITS/ML 10ML VIAL ONE ×2 (18:11→23:04)
[2022-09-29] MEDS: THIAMINE HCL 100 MG TABLET (FP) PO SCH (22:59)
[2022-09-29] MEDS: MELATONIN 5 MG TABLETS PO SCH (22:59)
[2022-09-29] MEDS: traZODone HCL 50 MG TABLET (FP) PO SCH (22:59)
[2022-09-30] MEDS: diazePAM 5 MG TABLET PO SCH ×4 (06:00→23:08)
[2022-09-30] MEDS: metFORMIN HCL 500 MG TABLET (FP) PO SCH ×2 (06:07→17:32)
[2022-09-30] MEDS: INSULIN SLIDING SCALE (NOVOLOG) 1 VIAL SQ SCH ×6 (06:10→23:08)
[2022-09-30] MEDS: PRENATAL VITAMINS W/ FOLIC ACID TABLET (FP) PO SCH (10:55)
[2022-09-30] MEDS: ASPIRIN 81 MG CHEWABLE TABLETS PO SCH (10:55)
[2022-09-30] MEDS: NICOTINE 14 MG/24 HOURS TOPICAL PATCH TD SCH (10:56)
[2022-09-30] MEDS: LISINOPRIL 20 MG TABLET PO SCH (10:58)
[2022-09-30] MEDS: CITALOPRAM HYDROBROMIDE 20 MG TABLET PO SCH (10:58)
[2022-09-30] MEDS ORDERED: INSULIN (NOVOLOG) ASPART 100 UNITS/ML 10ML VIAL ONE ×3 (11:31→23:06)
[2022-09-30] MEDS: traZODone HCL 50 MG TABLET (FP) PO SCH (23:07)
[2022-09-30] MEDS: THIAMINE HCL 100 MG TABLET (FP) PO SCH (23:07)
[2022-09-30] MEDS: MELATONIN 5 MG TABLETS PO SCH (23:43)
[2022-10-01] MEDS: diazePAM 5 MG TABLET PO SCH ×3 (06:08→22:27)
[2022-10-01] MEDS: metFORMIN HCL 500 MG TABLET (FP) PO SCH ×2 (06:11→17:28)
[2022-10-01] MEDS: INSULIN SLIDING SCALE (NOVOLOG) 1 VIAL SQ SCH ×5 (07:17→22:22)
[2022-10-01] MEDS: NICOTINE 14 MG/24 HOURS TOPICAL PATCH TD SCH ×2 (10:30→10:47)
[2022-10-01] MEDS: PRENATAL VITAMINS W/ FOLIC ACID TABLET (FP) PO SCH (10:45)
[2022-10-01] MEDS: ASPIRIN 81 MG CHEWABLE TABLETS PO SCH (10:46)
[2022-10-01] MEDS: METHOCARBAMOL 500 MG TABLET PO PRN (10:46)
[2022-10-01] MEDS: LISINOPRIL 20 MG TABLET PO SCH (10:46)
[2022-10-01] MEDS: CITALOPRAM HYDROBROMIDE 20 MG TABLET PO SCH (10:46)
[2022-10-01] MEDS: hydrOXYzine PAMOATE 25 MG CAPSULE (FP) PO PRN (10:46)
[2022-10-01] MEDS ORDERED: INSULIN (NOVOLOG) ASPART 100 UNITS/ML 10ML VIAL ONE ×2 (11:09→22:25)
[2022-10-01] MEDS: THIAMINE HCL 100 MG TABLET (FP) PO SCH (22:27)
[2022-10-01] MEDS: traZODone HCL 50 MG TABLET (FP) PO SCH (22:27)
[2022-10-01] MEDS: INSULIN (LEVEMIR) 100 UNITS/ML UNITS SQ SCH (22:29)
[2022-10-01] MEDS: MELATONIN 5 MG TABLETS PO SCH (22:30)
[2022-10-02] MEDS: diazePAM 5 MG TABLET PO SCH ×2 (05:43→18:37)
[2022-10-02] MEDS: metFORMIN HCL 500 MG TABLET (FP) PO SCH ×2 (06:12→16:53)
[2022-10-02] MEDS: INSULIN SLIDING SCALE (NOVOLOG) 1 VIAL SQ SCH ×4 (06:13→21:56)
[2022-10-02] MEDS: METHOCARBAMOL 500 MG TABLET PO PRN (10:49)
[2022-10-02] MEDS: PRENATAL VITAMINS W/ FOLIC ACID TABLET (FP) PO SCH (10:49)
[2022-10-02] MEDS: ASPIRIN 81 MG CHEWABLE TABLETS PO SCH (10:49)
[2022-10-02] MEDS: hydrOXYzine PAMOATE 25 MG CAPSULE (FP) PO PRN (10:49)
[2022-10-02] MEDS: LISINOPRIL 20 MG TABLET PO SCH (10:50)
[2022-10-02] MEDS: NICOTINE 14 MG/24 HOURS TOPICAL PATCH TD SCH (10:50)
[2022-10-02] MEDS: CITALOPRAM HYDROBROMIDE 20 MG TABLET PO SCH (10:50)
[2022-10-02] MEDS ORDERED: INSULIN (NOVOLOG) ASPART 100 UNITS/ML 10ML VIAL ONE ×2 (16:39→22:00)
[2022-10-02] MEDS: INSULIN (LEVEMIR) 100 UNITS/ML UNITS SQ SCH (22:00)
[2022-10-02] MEDS: traZODone HCL 50 MG TABLET (FP) PO SCH (22:01)
[2022-10-02] MEDS: THIAMINE HCL 100 MG TABLET (FP) PO SCH (22:01)
[2022-10-02] MEDS: MELATONIN 5 MG TABLETS PO SCH (22:22)
[2022-10-03] MEDS ORDERED: INSULIN (NOVOLOG) ASPART 100 UNITS/ML 10ML VIAL ONE (04:32)
[2022-10-03] MEDS ORDERED: diazePAM 5 MG TABLET PO ONE (06:00)
[2022-10-03] MEDS: metFORMIN HCL 500 MG TABLET (FP) PO SCH (06:01)
[2022-10-03] MEDS: INSULIN SLIDING SCALE (NOVOLOG) 1 VIAL SQ SCH ×2 (06:01→10:36)
[2022-10-03 09:10] VITALS: BP 120/70; PULSE 74; RESP 17; TEMP 97.4
[2022-10-03] MEDS: CITALOPRAM HYDROBROMIDE 20 MG TABLET PO SCH (10:35)
[2022-10-03] MEDS: ASPIRIN 81 MG CHEWABLE TABLETS PO SCH (10:35)
[2022-10-03] MEDS: NICOTINE 14 MG/24 HOURS TOPICAL PATCH TD SCH (10:35)
[2022-10-03] MEDS: LISINOPRIL 20 MG TABLET PO SCH (10:36)
[2022-10-03] MEDS: PRENATAL VITAMINS W/ FOLIC ACID TABLET (FP) PO SCH (10:36)
== END 2022-10-03 09:53 | disposition home or self-care (01) | DRG 773 ==
LOC: YASAS 09:54 → Y6N 12:23
PROVIDERS: ADMIT Allergy & Immunology; ATTEND Allergy & Immunology
PROC: HZ2ZZZZ Detoxification Services for Substance Abuse Treatment (ICD-10-PCS; principal; 2022-09-28)
DX: F11.23 Opioid dependence with withdrawal (principal); F14.20 Cocaine dependence, uncomplicated; F17.213 Nicotine dependence, cigarettes, with withdrawal; F33.1 Major depressive disorder, recurrent, moderate; F31.81 Bipolar II disorder; F19.982 Other psychoactive substance use, unspecified with psychoactive substance-induced sleep disorder; F19.94 Other psychoactive substance use, unspecified with psychoactive substance-induced mood disorder; F20.9 Schizophrenia, unspecified; I10 Essential (primary) hypertension; E11.9 Type 2 diabetes mellitus without complications; E78.5 Hyperlipidemia, unspecified; J45.909 Unspecified asthma, uncomplicated; M54.50 Low back pain, unspecified; E66.01 Morbid (severe) obesity due to excess calories; Z68.41 Body mass index [BMI] 40.0-44.9, adult; Z86.11 Personal history of tuberculosis; Z79.4 Long term (current) use of insulin; Z91.51 Personal history of suicidal behavior; Z56.0 Unemployment, unspecified; Z59.00 Homelessness unspecified
CPT/HCPCS: 36415; 71046-TC-FY; 73060-TC-LT-FY; 80053; 82962; 83036; 85027; 86780; 87635; 87811; 90677; 93005; 93010

== ENCOUNTER 2024-04-28 13:09 | Inpatient (IN) | payer OTHER ==
[2024-04-28 13:46] VITALS: BMI 44.1
[2024-04-28] MEDS ORDERED: NALOXONE (NARCAN) HCL 4 MG/0.1 ML SPRAY NS PRN (14:05)
[2024-04-28] MEDS ORDERED: DICYCLOMINE HCL 10 MG CAPSULE PO PRN (14:05)
[2024-04-28] MEDS ORDERED: POLYETHYLENE GLYCOL (HEALTHYLAX) 3350 17 GM PACKET PO PRN (14:05)
[2024-04-28] MEDS ORDERED: guaiFENesin 600 MG TABLET.ER (FP) PO PRN (14:05)
[2024-04-28] MEDS ORDERED: MAG HYDROX/AL HYDROX/SIMETH 30 ML UNIT-DOSE CUP PO PRN (14:05)
[2024-04-28] MEDS ORDERED: LOPERAMIDE HCL 2 MG CAPSULE PO PRN (14:05)
[2024-04-28] MEDS ORDERED: hydrOXYzine PAMOATE 25 MG CAPSULE (FP) PO PRN (14:05)
[2024-04-28] MEDS ORDERED: ACETAMINOPHEN 325 MG TABLET (FP) PO PRN (14:05)
[2024-04-28] MEDS ORDERED: METHOCARBAMOL 500 MG TABLET PO PRN (14:05)
[2024-04-28] MEDS ORDERED: IBUPROFEN 400 MG TABLET (FP) PO PRN (14:05)
[2024-04-28] MEDS ORDERED: IBUPROFEN 600 MG TABLET (FP) PO PRN (14:05)
[2024-04-28] MEDS ORDERED: diazePAM 5 MG TABLET PO PRN (14:05)
[2024-04-28] MEDS ORDERED: ONDANSETRON *ODT* 4 MG TABLET SL PRN (14:05)
[2024-04-28] MEDS ORDERED: BENZOCAINE/MENTHOL (CHLORASEPTIC ) LOZENGE MM PRN (14:05)
[2024-04-28] MEDS ORDERED: MAGNESIUM HYDROX 2400MG/30ML ORAL SUSPENSION 30 ML CUP PO PRN (14:05)
[2024-04-28] MEDS ORDERED: BENZONATATE 200 MG CAPSULE PO PRN (14:05)
[2024-04-28] MEDS ORDERED: diazePAM 5 MG TABLET ONE (16:51)
[2024-04-28] MEDS ORDERED: NICOTINE 14 MG/24 HOURS TOPICAL PATCH TD ONE (16:52)
[2024-04-28] MEDS ORDERED: PRENATAL VITAMINS W/ FOLIC ACID TABLET (FP) PO ONE (16:53)
[2024-04-28] MEDS: diazePAM 5 MG TABLET PO SCH (16:58)
[2024-04-28] MEDS: NICOTINE 14 MG/24 HOURS TOPICAL PATCH TD SCH (16:58)
[2024-04-28] MEDS: ACETAMINOPHEN 500 MG TABLET (FP) PO SCH (16:59)
[2024-04-28] MEDS: PRENATAL VITAMINS W/ FOLIC ACID TABLET (FP) PO SCH (16:59)
[2024-04-28] MEDS: INSULIN GLARGINE (LANTUS) 100 UNITS/ML UNITS SQ SCH (23:17)
[2024-04-28] MEDS: GABAPENTIN 300 MG CAPSULE PO SCH (23:18)
[2024-04-28] MEDS: THIAMINE 100 MG TABLET PO SCH (23:19)
[2024-04-28] MEDS: MELATONIN 5 MG TABLETS PO SCH (23:26)
[2024-04-29] MEDS: PANTOPRAZOLE 20 MG TABLET PO SCH (10:40)
[2024-04-29] MEDS: CLOPIDOGREL BISULFATE 75 MG TABLET (FP) PO SCH (10:40)
[2024-04-29] MEDS: LISINOPRIL 20 MG TABLET PO SCH (10:40)
[2024-04-29] MEDS: ASPIRIN 81 MG CHEWABLE TABLETS PO SCH (10:40)
[2024-04-29] MEDS: amLODIPine BESYLATE 5 MG TABLET (FP) PO SCH (10:40)
[2024-04-29] MEDS: ACAMPROSATE CALCIUM 333 MG TABLET.DR PO SCH (14:14)
[2024-04-29 15:24] LABS: HEMATOCRIT 41.4 % (35.4-49); HEMOGLOBIN 13.5 GM/dL (11.7-16.9); MCH 29.1 pg (25.7-33.7); MCHC 32.7 g/dl (32.0-35.9); MEAN PLT VOLUME 8.2 fl (7.5-11.1); PLATELET COUNT 191 10^3/uL (134-434); RBC 4.65 M/mm3 (4.00-5.60); RDW 15.3 % (11.9-15.9); WHITE BLOOD COUNT 6.4 K/mm3 (4.0-10.0)
[2024-04-29 15:28] LABS: CHLORIDE 98 mmol/L (98-107); POTASSIUM 3.8 mmol/L (3.5-5.1); SODIUM 136 mmol/L (136-145)
[2024-04-29 15:33] LABS: CALCIUM 8.9 mg/dL (8.5-10.1)
[2024-04-29 15:34] LABS: ALBUMIN 3.1 g/dl (3.4-5.0); ANION GAP 7 mmol/L (4-13); BLOOD UREA NITROGEN 17.1 mg/dL (7-18); CO2 30 mmol/L (21-32); GLUCOSE,RANDOM 262 mg/dL (74-106)
[2024-04-29 15:36] LABS: SGOT/AST 16 U/L (15-37)
[2024-04-29 15:37] LABS: CREATININE 0.8 mg/dL (0.55-1.3); SGPT/ALT 13 U/L (13-61)
[2024-04-29 15:38] LABS: BILIRUBIN,TOTAL 0.4 mg/dL (0.2-1); TOT PROT 6.6 g/dl (6.4-8.2)
[2024-04-29 15:44] LABS: ALK PHOS 91 U/L (45-117)
[2024-04-29] MEDS: ATORVASTATIN CA 40 MG TABLET (FP) PO SCH (23:00)
[2024-04-30] MEDS: diazePAM 5 MG TABLET PO SCH (06:11)
[2024-05-01] MEDS: diazePAM 5 MG TABLET PO SCH (06:28)
[2024-05-01] MEDS: BISMUTH SUBSALICYLATE 262 MG/15 ML BTL PO PRN (22:46)
[2024-05-02] MEDS: diazePAM 5 MG TABLET PO ONE (06:00)
[2024-05-02 07:45] VITALS: TEMP 97.6
[2024-05-02 09:33] VITALS: BP 119/67; PULSE 65; RESP 16
== END 2024-05-02 09:40 | disposition home or self-care (01) | DRG 774 ==
LOC: YASAS 13:09 → Y6N 15:44
PROVIDERS: ADMIT Allergy & Immunology; ATTEND Allergy & Immunology
PROC: HZ2ZZZZ Detoxification Services for Substance Abuse Treatment (ICD-10-PCS; principal; 2024-04-28)
DX: F10.230 Alcohol dependence with withdrawal, uncomplicated (principal); F14.20 Cocaine dependence, uncomplicated; F12.20 Cannabis dependence, uncomplicated; F17.210 Nicotine dependence, cigarettes, uncomplicated; F31.81 Bipolar II disorder; F41.9 Anxiety disorder, unspecified; E78.5 Hyperlipidemia, unspecified; I25.10 Atherosclerotic heart disease of native coronary artery without angina pectoris; Z95.5 Presence of coronary angioplasty implant and graft; E11.9 Type 2 diabetes mellitus without complications; Z79.84 Long term (current) use of oral hypoglycemic drugs; M54.50 Low back pain, unspecified; G89.29 Other chronic pain
CPT/HCPCS: 36415; 80053; 80305; 80307; 82962; 83036; 85027; 86780; 93005; 93010